=== PATIENT | male | born 1930 | race Caucasian/White ===

== ENCOUNTER 2016-09-12 21:06 | Inpatient (IN) | payer OTHER ==
--- NOTE | 2016-09-12 21:36 | PDOC ---
History of Present Illness - General History Source: Patient Exam Limitations: No Limitations - History of Present Illness Initial Comments: 09/12/16 23:58 The patient is a 86 year old male with significant past medical history of hypertension, hyperlipidemia, diabetes (diet-controlled), chronic back pain, and anxiety who presents to the ED BIBA from home for s/p unwitnessed mechanical fall prior to arrival. Patient reports he was getting up from his bed when his legs gave out and he fell down on the carpet floor. Denies any head trauma or LOC. States after falling down he felt weak and was unable to get up. He was on the floor for 30 minutes and states he contacted his neighbors. Patient admits to eating very little today. He states not having any pain or any other complaints. The patient denies fever, chills, cough, SOB, chest pain, and palpitations. The patient denies abdominal pain, nausea, vomiting, and diarrhea. Allergies: NKDA Social History: No alcohol, tobacco, or drug use reported. Past Surgical History: appendectomy, spinal fusion lumbar PCP: Dr. Antony Marks <Catie Hernandez - Last Filed: 09/13/16 03:15> <Dilcia Lee - Last Filed: 09/13/16 06:37> - General Chief Complaint: Injury Stated Complaint: WEAKNESS/FALL Time Seen by Provider: 09/12/16 21:36 Past History <Catie Hernandez - Last Filed: 09/13/16 03:15> - Past Medical History Anemia: No Asthma: No Cancer: No Cardiac Disorders: No Diabetes: Yes HTN: Yes Hypercholesterolemia: Yes Psychiatric Problems: Yes (ANXIETY.) - Surgical History Abdominal Surgery: Yes Appendectomy: Yes Neurologic Surgery: Yes (spinal fusion lumbar) - Psycho/Social/Smoking Cessation Hx Anxiety: No Suicidal Ideation: No Smoking Status: No Smoking History: Never smoked Number of Cigarettes Smoked Daily: 0 Hx Alcohol Use: No Drug/Substance Use Hx: No Substance Use Type: None Hx Substance Use Treatment: No <Dilcia Lee - Last Filed: 09/13/16 06:37> - Past Medical History Allergies/Adverse Reactions: Allergies Allergy/AdvReac Type Severity Reaction Status Date / Time No Known Allergies Allergy Verified 09/12/16 21:37 Home Medications: Ambulatory Orders Acetaminophen [Tylenol] 0 mg PO PRN PRN 03/13/16 Alprazolam [Xanax] 0.5 mg PO HS #2 tablet MDD 1 03/13/16 Aspirin [ASA -] 81 mg PO DAILY 03/13/16 Lisinopril 0 mg PO DAILY 03/13/16 Paroxetine HCl 0 mg PO DAILY 03/13/16 Tamsulosin HCl [Flomax] 0.4 mg PO DAILY 03/13/16 Review of Systems - Review of Systems Able to Perform ROS?: Yes Comments:: 09/12/16 23:58 CONSTITUTIONAL: +generalized weakness, decreased appetite Absent: fever, chills, diaphoresis, malaise HEENT: Absent: rhinorrhea, nasal congestion, throat pain, throat swelling, difficulty swallowing, mouth swelling, ear pain, eye pain, visual Changes CARDIOVASCULAR: Absent: chest pain, syncope, palpitations, irregular heart rate, lightheadedness , peripheral edema RESPIRATORY: Absent: cough, shortness of breath, dyspnea with exertion, orthopnea, wheezing, stridor, hemoptysis GASTROINTESTINAL: Absent: abdominal pain, abdominal distension, nausea, vomiting, diarrhea, constipation, melena, hematochezia GENITOURINARY: Absent: dysuria, frequency, urgency, hesitancy, hematuria, flank pain, genital pain MUSCULOSKELETAL: Absent: myalgia, arthralgia, joint swelling SKIN: Absent: rash, itching, pallor NEUROLOGIC: Absent: headache, focal weakness or paresthesias, dizziness, unsteady gait, seizure, mental status changes, bladder or bowel incontinence <Catie Hernandez - Last Filed: 09/13/16 03:15> *Physical Exam - Vital Signs Last Vital Signs Temp Pulse Resp BP Pulse Ox 98.7 F 68 19 96/48 98 09/12/16 21:29 09/12/16 21:29 09/12/16 21:29 09/12/16 21:29 09/12/16 21:29 - Physical Exam Comments: 09/13/16 03:14 GENERAL: Well developed, well nourished. Awake and alert. No acute distress. HEENT: Normocephalic, atraumatic. PERRLA, EOMI. No conjunctival pallor. Sclera are non- icteric. Rhinophyma. Moist mucous membranes. Oropharynx is clear. NECK: Supple. Full ROM. No JVD. Carotid pulses 2+ and symmetric, without bruits. No thyromegaly. No lymphadenopathy. CARDIOVASCULAR: Regular rate and rhythm. No murmurs, rubs, or gallops. Distal pulses are 2+ and symmetric. PULMONARY: No evidence of respiratory distress. Lungs clear to auscultation bilaterally. No wheezing, rales or rhonchi. ABDOMINAL: Soft. Non-tender. Non-distended. No rebound or guarding. No organomegaly. Normoactive bowel sounds. MUSCULOSKELETAL Normal range of motion at all joints. No bony deformities or tenderness. No CVA tenderness. EXTREMITIES: No cyanosis. No clubbing. No edema. No calf tenderness. SKIN: Warm and dry. Normal capillary refill. No rashes. No jaundice. NEUROLOGICAL: Alert, awake, appropriate. Cranial nerves 2-12 intact. Moving all extremities. No gross focal neurological deficits. <Catie Hernandez - Last Filed: 09/13/16 03:15> Heart Score/ECG Review - ECG Impressions Comment:: 09/13/16 00:58 NSR @65bpm <Catie Hernandez - Last Filed: 09/13/16 03:15> ED Treatment Course - LABORATORY CBC & Chemistry Diagram: 09/12/16 22:30 09/12/16 22:30 - ADDITIONAL ORDERS Additional order review: Laboratory Results 09/12/16 09/12/16 09/12/16 22:30 22:30 22:30 INR Sodium 136 Potassium 3.7 Chloride 100 Carbon Dioxide 27 Anion Gap 9 BUN 21 H D Creatinine 1.2 D Creat Clearance w eGFR 57.54 Random Glucose 184 H D Calcium 8.0 L Total Bilirubin 0.5 AST 31 D ALT 24 Alkaline Phosphatase 121 H Creatine Kinase 791 H D Creatine Kinase Index 1.0 CK-MB (CK-2) 9.111 H CK-MB (CK-2) Rel Index Cancelled Total Protein 6.1 L Albumin 3.4 09/12/16 22:30 INR 1.31 H Sodium Potassium Chloride Carbon Dioxide Anion Gap BUN Creatinine Creat Clearance w eGFR Random Glucose Calcium Total Bilirubin AST ALT Alkaline Phosphatase Creatine Kinase Creatine Kinase Index CK-MB (CK-2) CK-MB (CK-2) Rel Index Total Protein Albumin 09/12/16 22:30 RBC 4.31 MCV 90.3 MCHC 32.9 RDW 13.5 MPV 7.7 Neutrophils % 88.0 H D Lymphocytes % 5.1 L D Monocytes % 6.4 Eosinophils % 0.2 D Basophils % 0.3 - Medications Given in the ED: ED Medications Discontinued Medications Generic Name Dose Route Start Last Admin Trade Name Reg PRN Reason Stop Dose Admin Sodium Chloride 1,000 ml 09/12/16 22:03 09/12/16 22:39 Normal Saline - IV 09/12/16 22:04 1,000 ml ONCE ONE Administration <Catie Hernandez - Last Filed: 09/13/16 03:15> - LABORATORY CBC & Chemistry Diagram: 09/12/16 22:30 09/12/16 22:30 <Dilcia Lee - Last Filed: 09/13/16 06:37> Medical Decision Making - Medical Decision Making 09/12/16 23:[address] Antony Marks (via answering service) at 23:58 Awaiting call back 09/13/16 00:25 Patient's case discussed with Dr. Marks at 24:25 <Catie Hernandez - Last Filed: 09/13/16 03:15> - Medical Decision Making 09/13/16 06:32 Pt came with fall at home. He was weak in the legs and he slid onto the floor as he tried to get out of bed. He called his neighbors, and they came and brought him to the ER vit [facility]. Pt has an elevated CPK, and he will be admitted to the med surg floor for generalized weakness. 09/13/16 06:35 Pt's UA returned and he has a UTI; many bacteria, 2+leukocytes. I will order levaquin IVPB; he never received it in the ER, because the UA returned after he went to the floor. 09/13/16 06:37 Pt was admitted to Dr Marks. <Dilcia Lee - Last Filed: 09/13/16 06:37> *DC/Admit/Observation/Transfer - Attestations Scribe Attestion: 09/13/16 03:15 Documentation prepared by Catie Hernandez, acting as medical assistant per diem for Dilcia Lee MD/DO. <Catie Hernandez - Last Filed: 09/13/16 03:15> - Discharge Dispostion Admit: Yes <Dilcia Lee - Last Filed: 09/13/16 06:37> Diagnosis at time of Disposition: Fall, Rhabdomyolysis, Weakness, Dehydration - Discharge Dispostion Condition at time of disposition: Guarded - Referrals
[2016-09-12 21:54] VITALS: BMI 23.0
[2016-09-12] MEDS ORDERED: SODIUM CHLORIDE 0.9% 500 ML INFUS.BAG IV ONE (22:03)
[2016-09-12 22:41] LABS: BASOPHIL 0.3 % (0-2.0); EOSINOPHIL 0.2 % (0-4.5); MCH 29.7 pg (25.7-33.7); MCHC 32.9 g/dl (32.0-35.9); MEAN CELL VOLUME 90.3 fl (80-96); MEAN PLT VOLUME 7.7 fl (7.5-11.1); PLATELET COUNT 231 K/MM3 (134-434); RDW 13.5 % (11.9-15.9); WHITE BLOOD COUNT 13.2 K/mm3 (4.0-10.0)
[2016-09-12 22:58] LABS: INR 1.31 (0.82-1.09); PROTHROMBIN TIME (PATIENT) 14.5 SEC (9.98-11.88)
[2016-09-12 23:14] LABS: ALBUMIN 3.4 g/dl (3.4-5.0); BILIRUBIN,TOTAL 0.5 mg/dL (0.2-1.0); COCKROFT - GAULT 47.64; CREATININE 1.2 mg/dL (0.7-1.3); TOT PROT 6.1 g/dl (6.4-8.2)
[2016-09-13 01:10] LABS: URINE APPEARANCE SLCLOUDY; URINE BILIRUBIN NEGATIVE (NEGATIVE); URINE COLOR AMBER; URINE GLUCOSE (UA) NEGATIVE (NEGATIVE); URINE KETONE NEGATIVE (NEGATIVE); URINE NITRITE NEGATIVE (NEGATIVE); URINE UROBILINOGEN NEGATIVE E.U./dl (0.2-1.0)
[2016-09-13 01:23] LABS: URINE BLOOD 2+ (NEGATIVE); URINE LEUK ESTERASE 2+ (NEGATIVE); URINE PROTEIN 1+ (NEGATIVE)
[2016-09-13 01:25] LABS: URINE BACTERIA MANY /hpf (NONE SEEN); URINE HYALINE CAST 35 /lpf; URINE MUCUS MANY; URINE RBC 3 /hpf (0-3); URINE WBC 142 /hpf (3-5)
[2016-09-13] MEDS ORDERED: ACETAMINOPHEN 325 MG TABLET (FP) PO PRN (06:28)
[2016-09-13] MEDS ORDERED: LEVOFLOXACIN 500 MG IVPB 100 ML IVPB ONE (06:36)
[2016-09-13] MEDS: SODIUM CHLORIDE 0.45% 1,000 ML IV SCH ×2 (06:52→17:19)
[2016-09-13 07:44] LABS: BASOPHIL 0.2 % (0-2.0); EOSINOPHIL 0.1 % (0-4.5); MCH 30.6 pg (25.7-33.7); MCHC 33.8 g/dl (32.0-35.9); MEAN CELL VOLUME 90.5 fl (80-96); MEAN PLT VOLUME 7.8 fl (7.5-11.1); NEUTROPHILS 81.8 % (42.8-82.8); PLATELET COUNT 218 K/MM3 (134-434); RDW 13.5 % (11.9-15.9); WHITE BLOOD COUNT 10.2 K/mm3 (4.0-10.0)
[2016-09-13 08:04] LABS: ANION GAP 7 (8-16); CALCIUM 7.9 mg/dL (8.5-10.1); CO2 31 mmol/L (21-32); GLUCOSE,RANDOM 113 mg/dL (74-106); SGOT/AST 63 U/L (15-37); SGPT/ALT 30 U/L (12-78)
[2016-09-13 08:06] LABS: ALK PHOS 105 U/L (45-117); BILIRUBIN,TOTAL 0.7 mg/dL (0.2-1.0); COCKROFT - GAULT 63.52; CREATININE 0.9 mg/dL (0.7-1.3); TOT PROT 5.5 g/dl (6.4-8.2)
[2016-09-13] MEDS: TAMSULOSIN HCL 0.4 MG CAP.ER.24H (FP) PO SCH (08:38)
--- NOTE | 2016-09-13 08:57 | EKG ---
Test Reason : Blood Pressure : / mmHG Vent. Rate : 064 BPM Atrial Rate : 064 BPM P-R Int : 156 ms QRS Dur : 064 ms QT Int : 404 ms P-R-T Axes : 041 038 031 degrees QTc Int : 416 ms SINUS RHYTHM WITH PREMATURE ATRIAL COMPLEXES OTHERWISE NORMAL ECG WHEN COMPARED WITH ECG OF 12-SEP-2016 22:42, PREMATURE ATRIAL COMPLEXES ARE NOW PRESENT Confirmed by IRENE DANIELS, STORMY ([id number]) on 09/13/2016 8:57:24 AM Referred By: FREDO BENAVIDES Confirmed By:STORMY BONILLA MD
[2016-09-13] MEDS: LISINOPRIL 5 MG TABLET (FP) PO SCH ×2 (10:32→11:18)
[2016-09-13] MEDS: HEPARIN NA (PORCINE) 5,000 UNITS/ML 1ML VIAL SQ SCH ×2 (10:32→22:30)
[2016-09-13] MEDS: PARoxetine HCL 10 MG TABLET (FP) PO SCH (10:32)
[2016-09-13] MEDS: ASPIRIN 81 MG CHEWABLE TABLETS PO SCH (10:32)
--- NOTE | 2016-09-13 11:15 | HP ---
Admitting History and Physical - Primary Care Physician PCP: Antony Marks - Admission Chief Complaint: fall,legs gave way could not get up History of Present Illness: The patient is a 86 year old male with significant past medical history of hypertension, hyperlipidemia, diabetes (diet-controlled), chronic back pain, and anxiety who presents to the ED BIBA from home for s/p unwitnessed mechanical fall prior to arrival. Patient reports he was getting up from his bed when his legs gave out and he fell down on the carpet floor. Denies any head trauma or LOC. States after falling down he felt weak and was unable to get up. He was on the floor for 30 minutes and states he contacted his neighbors. Patient admits to eating very little today. He states not having any pain or any other complaints. The patient denies fever, chills, cough, SOB, chest pain, and palpitations. The patient denies abdominal pain, nausea, vomiting, and diarrhea. Allergies: NKDA Social History: No alcohol, tobacco, or drug use reported. Past Surgical History: appendectomy, spinal fusion lumbar PCP: Dr. Antony Marks per patient he slid off the bed and tried to get up his legs gave way and had no strenght and could not get up and was on the floor for 30 minutes found to have uti and elevated Wbc elevated cpk on ivf History Source: Patient - Past Medical History Cardiovascular: Yes: HTN, Hyperlipdemia Musculoskeletal: Yes: Chronic low back pain Endocrine: Yes: Diabetes Mellitus - Smoking History Smoking history: Never smoked Have you smoked in the past 12 months: No Aproximately how many cigarettes per day: 0 If you are a former smoker, when did you quit?: 50 years ago - Alcohol/Substance Use Hx Alcohol Use: No Home Medications - Allergies Allergies/Adverse Reactions: Allergies Allergy/AdvReac Type Severity Reaction Status Date / Time No Known Allergies Allergy Verified 09/12/16 21:37 - Home Medications Home Medications: Ambulatory Orders Acetaminophen [Tylenol] 0 mg PO PRN PRN 03/13/16 Alprazolam [Xanax] 0.5 mg PO HS #2 tablet MDD 1 03/13/16 Aspirin [ASA -] 81 mg PO DAILY 03/13/16 Lisinopril 0 mg PO DAILY 03/13/16 Paroxetine HCl 0 mg PO DAILY 03/13/16 Tamsulosin HCl [Flomax] 0.4 mg PO DAILY 03/13/16 Review of Systems - Review of Systems Constitutional: reports: No Symptoms Eyes: reports: No Symptoms HENT: reports: No Symptoms Neck: reports: No Symptoms Cardiovascular: reports: No Symptoms Respiratory: reports: No Symptoms Physical Examination Vital Signs: Vital Signs Temperature 98 F 09/13/16 07:44 Pulse Rate 69 09/13/16 07:44 Respiratory Rate 18 09/13/16 07:44 Blood Pressure 110/45 09/13/16 07:44 O2 Sat by Pulse Oximetry (%) 98 09/13/16 07:44 Constitutional: Yes: Calm Neck: Yes: Trachea Midline Cardiovascular: Yes: Regular Rate and Rhythm, S1, S2 Respiratory: Yes: CTA Bilaterally Gastrointestinal: Yes: Normal Bowel Sounds, Soft Edema: No Neurological: Yes: Alert, Oriented, Other (able to flex and extend his legs) Labs: CBC, BMP 09/13/16 06:45 09/13/16 06:45 Problem List - Problems (1) Dehydration Assessment/Plan: ivf hydration monitor labs Code(s): E86.0 - DEHYDRATION (2) Fall Assessment/Plan: PMR consult rehab Code(s): W19.XXXA - UNSPECIFIED FALL, INITIAL ENCOUNTER (3) Rhabdomyolysis Assessment/Plan: iv hydratins elevated CPK Code(s): M62.82 - RHABDOMYOLYSIS (4) Weakness Assessment/Plan: PT Code(s): R53.1 - WEAKNESS (5) UTI (urinary tract infection) Assessment/Plan: got levaquin dose today ID eval culures pending Code(s): N39.0 - URINARY TRACT INFECTION, SITE NOT SPECIFIED (6) Hypertension Assessment/Plan: hold for SBP <110 Code(s): I10 - ESSENTIAL (PRIMARY) HYPERTENSION (7) BPH (benign prostatic hyperplasia) Assessment/Plan: flomax Code(s): N40.0 - BENIGN PROSTATIC HYPERPLASIA WITHOUT LOWER URINRY TRACT SYMP
--- NOTE | 2016-09-13 13:32 | EKG ---
Test Reason : Blood Pressure : / mmHG Vent. Rate : 065 BPM Atrial Rate : 065 BPM P-R Int : 162 ms QRS Dur : 068 ms QT Int : 390 ms P-R-T Axes : 038 023 042 degrees QTc Int : 405 ms NORMAL SINUS RHYTHM WITH SINUS ARRHYTHMIA NORMAL ECG WHEN COMPARED WITH ECG OF 13-MAR-2016 12:24, NO SIGNIFICANT CHANGE WAS FOUND Confirmed by KENDELL DUMONT MD ([id number]) on 09/13/2016 1:32:03 PM Referred By: Confirmed By:KENDELL DUMONT MD
--- NOTE | 2016-09-13 14:34 | PN ---
Progress Note (short form) - Note Progress Note: ID consult dictated imp/reccd 86 year old man admitted after fall and weakness at home no syncope no chest pain was getting up to use the bathroom as he does every night fever to 101 several days ago no dysuria, no change in frequency no cough no diarrhea followed by urology dr zaman for BPD, on flomas, ?urethral stricture weakness s/p fall Doubt UTI ua is contaminated repeat ua and urine culture blood cultures rocephin rhabdomyolysis secondary to fall Problem List - Problems (1) Weakness Code(s): R53.1 - WEAKNESS (2) Fall Code(s): W19.XXXA - UNSPECIFIED FALL, INITIAL ENCOUNTER (3) UTI (urinary tract infection) Code(s): N39.0 - URINARY TRACT INFECTION, SITE NOT SPECIFIED (4) Rhabdomyolysis Code(s): M62.82 - RHABDOMYOLYSIS
--- NOTE | 2016-09-13 15:04 | CON.CARD ---
Consult Consult Specialty:: Cardiology Referred by:: Dr. Marks Reason for Consultation:: Abnormal CPK enzymes - History of Present Illness Chief Complaint: S/P fall History of Present Illness: This is an 86 year old male with a PMH of HTN, HLD, and DM (controlled by diet) . Also a history of previous mechanical falls. Occasionally he gets lightheaded when getting up from the bed or a chair. He presents now with a fall after getting out of bed where he states that: "my legs gave out", and he fell to a carpeted floor. He was on the floor for about 1/2 hour because he states that he felt weak. He was noted to have positive CPK MB's. He denies chest pain, palpitations, and SOB. EKG's are without acute changes. - History Source History Provided By: Patient Limitations to Obtaining History: No Limitations - Past Medical History Cardio/Vascular: Yes: HTN, Hyperlipdemia Musculoskeletal: Yes: Chronic low back pain Endocrine: Yes: Diabetes Mellitus - Past Surgical History Additional Surgical History: Hip replacement (as per the patient) - Alcohol/Substance Use Hx Alcohol Use: No - Smoking History Smoking history: Never smoked Have you smoked in the past 12 months: No Aproximately how many cigarettes per day: 0 If you are a former smoker, when did you quit?: 50 years ago Home Medications - Allergies Allergies/Adverse Reactions: Allergies Allergy/AdvReac Type Severity Reaction Status Date / Time No Known Allergies Allergy Verified 09/12/16 21:37 - Home Medications Home Medications: Ambulatory Orders Acetaminophen [Tylenol] 0 mg PO PRN PRN 03/13/16 Alprazolam [Xanax] 0.5 mg PO HS #2 tablet MDD 1 03/13/16 Aspirin [ASA -] 81 mg PO DAILY 03/13/16 Lisinopril 0 mg PO DAILY 03/13/16 Paroxetine HCl 0 mg PO DAILY 03/13/16 Tamsulosin HCl [Flomax] 0.4 mg PO DAILY 03/13/16 Review of Systems Unable to obtain ROS, reason: As per HPI Vital Signs: Vital Signs Temperature 98.6 F 09/13/16 14:11 Pulse Rate 65 09/13/16 14:11 Respiratory Rate 20 09/13/16 14:11 Blood Pressure 108/56 09/13/16 14:11 O2 Sat by Pulse Oximetry (%) 97 09/13/16 09:00 Constitutional: Yes: No Distress. No: Other Respiratory: Yes: CTA Bilaterally Gastrointestinal: Yes: Soft Cardiovascular: Yes: Regular Rate and Rhythm JVD: No Carotid Bruit: No PMI: Non-Displaced Heart Sounds: Yes: S1, S2 Edema: No Peripheral Pulses WNL: Yes Neurological: Yes: Alert, Oriented, Other (Non focal) Psychiatric: Yes: WNL - Other Data Labs, Other Data: CBC, BMP 09/13/16 06:45 09/13/16 06:45 INR, PTT INR 1.31 (0.82-1.09) H 09/12/16 22:30 Troponin, BNP 09/13/16 09/13/16 06:45 06:45 Troponin I 0.10 H D Cancelled Troponin, BNP 09/13/16 09/13/16 06:45 06:45 Troponin I 0.10 H D Cancelled No acute EKG changes Assessment/Plan Assessment and Plan: S/P Fall: Possibly mechanical, may be orthostatic Agree with transferring to telemetry given lab abnormalities Echocardiogram ordered Check orthostatic BP's CPK 2262 CK-MB 17.5, Troponin 0.10 - This most likely represent skeletal muscle form being on the ground, however, a cardiac component is possible. Follow enzyme trends. Would hold Lisinopril for now given low BP If he is orthostatic, this may be secondary to Flomax. Will follow with you.
[2016-09-13] MEDS ORDERED: PNEUMOC 13-VAL CONJ-DIP CRM/PF 0.5 ML DISP.SYRIN IM ONE (15:15)
[2016-09-13 15:48] LABS: TROPONIN I 0.07 ng/ml (0.00-0.05)
--- NOTE | 2016-09-13 16:57 | CONS ---
DATE OF CONSULTATION: DATE OF DICTATION: 09/13/2016 INFECTIOUS DISEASE CONSULTATION HISTORY OF PRESENT ILLNESS: An 86-year-old man, he lives at home. He is a , lives by himself. 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 He is followed by Dr. Dexter. He has been on Flomax for a very long time. He gets up nightly several times to urinate. This is unchanged. Last night he got up to urinate. He says he got up very quickly, and then he fell down. He felt very weak and was unable to get back in bed. He was able to pull the phone off the dresser, and he contacted his neighbors. He has been eating poorly. He states 2 or 3 days ago he felt very hot. He took his temperature and had a fever of 101. He has no other complaints. There is no cough, shortness of breath, chest pain, or palpitations. He has no abdominal pain. He has no nausea, vomiting. He has no diarrhea. He has no dysuria. He had no loss of consciousness. He did not hit his head. PAST MEDICAL HISTORY: Notable for hypertension, hyperlipidemia, chronic low back pain and diabetes. He has a history of BPH and I suspect he has had strictures dilated. SURGICAL HISTORY: Notable for appendectomy and spinal fusion. FAMILY HISTORY: Noncontributory. SOCIAL HISTORY: Used to work for [employer]. He has been retired for many years. He is . He lives alone. There is no history of cigarette or substance use. ALLERGIES: He has no known drug allergies. MEDICATION: His medications at home include Tylenol, Xanax, aspirin, lisinopril, Paxil, and Flomax. He reports no new medications, although he recently did take an antibiotic he says for a sore throat. He takes amoxicillin. REVIEW OF SYSTEMS: As per HPI. He is currently resting comfortably and has no complaints. PHYSICAL EXAMINATION: Vital signs: Temperature is 98.6, T-max was 99, blood pressure is 108/56, pulse of 65, respiratory rate 20, saturating 97% on room air. HEENT: Normocephalic. Eyes are anicteric. Neck: Supple. Lungs: Clear to auscultation. Heart: Regular rate and rhythm. Abdomen: Soft, nontender. Extremities: Without edema. He has no palpable bladder. He has no CVA tenderness. LABORATORY: White count on admission was 13.2. Last night, this morning was 10.2. Hemoglobin 12.3, platelets are normal. BUN and creatinine are 18 and 0.9. Glucose 113 with a CPK . Urinalysis has 2+ leukocytes with 142 white cells and moderate epithelial cells. A urine culture has been sent. He had a chest x-ray done in the emergency room that was unremarkable. IMPRESSION: In summary, this is an elderly man with weakness status post fall. I doubt a urinary tract infection. The urinalysis is contaminated. Would repeat a urinalysis, urine culture. Would obtain blood cultures given the recent fever, and treat him with ceftriaxone for now. Secondarily, he has rhabdomyolysis . KAREN FERGUSON M.D. [facility]/[id number]
[2016-09-13] MEDS: ALPRAZolam 0.25 MG TABLET PO SCH (22:30)
[2016-09-14 07:08] LABS: BASOPHIL 0.3 % (0-2.0); EOSINOPHIL 2.9 % (0-4.5); MCH 30.8 pg (25.7-33.7); MCHC 33.8 g/dl (32.0-35.9); MEAN CELL VOLUME 91.1 fl (80-96); MEAN PLT VOLUME 7.7 fl (7.5-11.1); NEUTROPHILS 62.6 % (42.8-82.8); PLATELET COUNT 216 K/MM3 (134-434); RDW 13.5 % (11.9-15.9); WHITE BLOOD COUNT 5.5 K/mm3 (4.0-10.0)
[2016-09-14 07:42] LABS: ALBUMIN 2.9 g/dl (3.4-5.0); ALK PHOS 100 U/L (45-117); ANION GAP 11 (8-16); BILIRUBIN,TOTAL 0.2 mg/dL (0.2-1.0); CO2 28 mmol/L (21-32); COCKROFT - GAULT 82.07; CREATININE 0.7 mg/dL (0.7-1.3); GLUCOSE,RANDOM 97 mg/dL (74-106); SGOT/AST 86 U/L (15-37); SGPT/ALT 40 U/L (12-78); TOT PROT 5.4 g/dl (6.4-8.2)
--- NOTE | 2016-09-14 07:49 | PN ---
Progress Note, Physician History of Present Illness: NO CP NO SOB WEAKNESS - Current Medication List Current Medications: Active Medications Acetaminophen (Tylenol -) 650 mg PO Q6H PRN PRN Reason: FEVER OR PAIN Alprazolam (Xanax -) 0.5 mg PO HS [facility] Last Admin: 09/13/16 22:30 Dose: 0.25 mg Aspirin (Asa -) 81 mg PO DAILY [facility] Last Admin: 09/13/16 10:32 Dose: 81 mg Ceftriaxone Sodium (Rocephin 1gm Ivpb (Pre-Docked)) 1 gm IVPB DAILY [facility] PRN Reason: Protocol Heparin Sodium (Porcine) (Heparin -) 5,000 unit SQ BID [facility] Last Admin: 09/13/16 22:30 Dose: 5,000 unit Sodium Chloride (1/2 Normal Saline) 1,000 mls @ 125 mls/hr IV ASDIR [facility] Last Admin: 09/13/16 17:19 Dose: 125 mls/hr Lisinopril (Prinivil) 5 mg PO DAILY [facility] Paroxetine HCl (Paxil -) 10 mg PO DAILY [facility] Last Admin: 09/13/16 10:32 Dose: 10 mg Tamsulosin HCl (Flomax -) 0.4 mg PO DAILY@0830 [facility] Last Admin: 09/13/16 08:38 Dose: 0.4 mg - Objective Vital Signs: Vital Signs Temperature 98.4 F 09/14/16 06:00 Pulse Rate 57 L 09/14/16 06:00 Respiratory Rate 18 09/14/16 06:00 Blood Pressure 128/54 09/14/16 06:00 O2 Sat by Pulse Oximetry (%) 98 09/13/16 22:00 Cardiovascular: Yes: Regular Rate and Rhythm Respiratory: Yes: Regular, CTA Bilaterally Gastrointestinal: Yes: Normal Bowel Sounds, Soft Labs: CBC, BMP 09/14/16 06:10 09/14/16 06:10 INR, PTT INR 1.31 (0.82-1.09) H 09/12/16 22:30 Problem List - Problems (1) Dehydration Assessment/Plan: BETTER NOW ON IVF Code(s): E86.0 - DEHYDRATION (2) Hypertension Assessment/Plan: MONITOR OFF SHANNON Code(s): I10 - ESSENTIAL (PRIMARY) HYPERTENSION (3) Rhabdomyolysis Assessment/Plan: IVF CK TRENDING DOWN Code(s): M62.82 - RHABDOMYOLYSIS (4) UTI (urinary tract infection) Assessment/Plan: ABX PER ID Code(s): N39.0 - URINARY TRACT INFECTION, SITE NOT SPECIFIED (5) Weakness Assessment/Plan: PT AWAIT LABS AND CULTURES Code(s): R53.1 - WEAKNESS (6) Troponin I above reference range Assessment/Plan: MONITOR TRENDS ECHO STRESS TEST Code(s): R74.8 - ABNORMAL LEVELS OF OTHER SERUM ENZYMES
[2016-09-14 07:58] LABS: TROPONIN I 0.02 ng/ml (0.00-0.05)
[2016-09-14] MEDS ORDERED: PNEUMOC 13-VAL CONJ-DIP CRM/PF 0.5 ML DISP.SYRIN IM ONE (10:00)
[2016-09-14] MEDS ORDERED: DEXTROSE 5% IVPB ONE (10:00)
[2016-09-14] MEDS ORDERED: WATER IVPB ONE (10:00)
[2016-09-14] MEDS ORDERED: DIPYRIDAMOLE STRESS TEST IVPB ONE (10:00)
[2016-09-14] MEDS: cefTRIAXone 1 GM/50 ML BAG (PRE-DOCKED) IVPB SCH (13:34)
[2016-09-14] MEDS: SODIUM CHLORIDE 0.45% 1,000 ML IV SCH (13:37)
[2016-09-14] MEDS: ASPIRIN 81 MG CHEWABLE TABLETS PO SCH (13:38)
[2016-09-14] MEDS: HEPARIN NA (PORCINE) 5,000 UNITS/ML 1ML VIAL SQ SCH ×2 (13:38→22:14)
[2016-09-14] MEDS: TAMSULOSIN HCL 0.4 MG CAP.ER.24H (FP) PO SCH (13:38)
[2016-09-14] MEDS: LISINOPRIL 5 MG TABLET (FP) PO SCH (13:39)
[2016-09-14] MEDS: PARoxetine HCL 10 MG TABLET (FP) PO SCH (13:39)
--- NOTE | 2016-09-14 15:20 | PN ---
Progress Note, Physician Chief Complaint: Remains comfortable and chest pain free History of Present Illness: This is an 86 year old male with a PMH of HTN, HLD, and DM (controlled by diet) . Also a history of previous mechanical falls. Occasionally he gets lightheaded when getting up from the bed or a chair. He presents now with a fall after getting out of bed where he states that: "my legs gave out", and he fell to a carpeted floor. He was on the floor for about 1/2 hour because he states that he felt weak. He was noted to have positive CPK MB's. He denies chest pain, palpitations, and SOB. EKG's are without acute changes. Echocardiogram 09/14/16 EF 58.4% Normal LV size and function Mild to moderate MR Mild TR RVSP 30 - 40 mmHg consistent with mild pulmonary HTN Persantine Nuclear Stress Test 09/14/16: Small zone of inferior fixed defect from the base to the mid cavity compatible with diaphragmatic attenuation. Normal LV function with an EF of 65%. 09/14/16 Remains comfortable and hemodynamically stable - Current Medication List Current Medications: Active Medications Acetaminophen (Tylenol -) 650 mg PO Q6H PRN PRN Reason: FEVER OR PAIN Alprazolam (Xanax -) 0.5 mg PO HS [facility] [place] Last Admin: 09/13/16 22:30 Dose: 0.25 mg Aspirin (Asa -) 81 mg PO DAILY [facility] [place] Last Admin: 09/14/16 13:38 Dose: 81 mg Ceftriaxone Sodium (Rocephin 1gm Ivpb (Pre-Docked)) 1 gm IVPB DAILY [facility] [place] PRN Reason: Protocol Last Admin: 09/14/16 13:34 Dose: 1 gm Heparin Sodium (Porcine) (Heparin -) 5,000 unit SQ BID [facility] [place] Last Admin: 09/14/16 13:38 Dose: 5,000 unit Sodium Chloride (1/2 Normal Saline) 1,000 mls @ 125 mls/hr IV ASDIR [facility] [place] Last Admin: 09/14/16 13:37 Dose: 125 mls/hr Lisinopril (Prinivil) 5 mg PO DAILY [facility] [place] Last Admin: 09/14/16 13:39 Dose: 5 mg Paroxetine HCl (Paxil -) 10 mg PO DAILY [facility] [place] Last Admin: 09/14/16 13:39 Dose: 10 mg Tamsulosin HCl (Flomax -) 0.4 mg PO DAILY@0830 [facility] [place] Last Admin: 09/14/16 13:38 Dose: 0.4 mg - Objective Vital Signs: Vital Signs Temperature 98.6 F 09/14/16 14:50 Pulse Rate 60 09/14/16 14:50 Respiratory Rate 18 09/14/16 14:50 Blood Pressure 118/58 09/14/16 14:50 O2 Sat by Pulse Oximetry (%) 98 09/13/16 22:00 Constitutional: Yes: Well Nourished, Calm Cardiovascular: Yes: Regular Rate and Rhythm, S1, S2 (No MRHG) Respiratory: Yes: CTA Bilaterally Gastrointestinal: Yes: Soft Extremities: Yes: WNL Edema: No Neurological: Yes: Alert (Non focal), Oriented Labs: CBC, BMP 09/14/16 06:10 09/14/16 06:10 INR, PTT INR 1.31 (0.82-1.09) H 09/12/16 22:30 Assessment/Plan Assessment and Plan: S/P Fall positive CPK Possibly mechanical, may be orthostatic Echocardiogram with normal LV function Nuclear stress test with essentially normal perfusion (soft tissue attenuation) Enzymes are trending down Tolerating current medical therapy
[2016-09-14] MEDS: ALPRAZolam 0.25 MG TABLET PO SCH (22:15)
[2016-09-15] MEDS ORDERED: PT OWN MED DRAWER 7, Y5N ONE (09:05)
--- NOTE | 2016-09-15 09:16 | DS ---
Physical Examination Vital Signs: Vital Signs Temperature 98.3 F 09/15/16 06:00 Pulse Rate 61 09/15/16 06:00 Respiratory Rate 18 09/15/16 06:00 Blood Pressure 113/60 09/15/16 06:00 O2 Sat by Pulse Oximetry (%) 95 09/14/16 21:00 Findings/Remarks: NO COMPLAINTS Cardiovascular: Yes: Regular Rate and Rhythm Respiratory: Yes: Regular, CTA Bilaterally Gastrointestinal: Yes: Normal Bowel Sounds, Soft Labs: CBC, BMP 09/14/16 06:10 09/14/16 06:10 Discharge Summary Reason For Visit: RHABDOMYOYSIS FALL WEAKNESS Current Active Problems BPH (benign prostatic hyperplasia) (Acute) Dehydration (Acute) Fall (Acute) Hypertension (Acute) Rhabdomyolysis (Acute) Troponin I above reference range (Acute) UTI (urinary tract infection) (Acute) Weakness (Acute) Hospital Course: The patient is a 86 year old male with significant past medical history of hypertension, hyperlipidemia, diabetes (diet-controlled), chronic back pain, and anxiety who presents to the ED BIBA from home for s/p unwitnessed mechanical fall prior to arrival. Patient reports he was getting up from his bed when his legs gave out and he fell down on the carpet floor. Denies any head trauma or LOC. States after falling down he felt weak and was unable to get up. He was on the floor for 30 minutes and states he contacted his neighbors. Patient admits to eating very little today. He states not having any pain or any other complaints. The patient denies fever, chills, cough, SOB, chest pain, and palpitations. The patient denies abdominal pain, nausea, vomiting, and diarrhea. Allergies: NKDA Social History: No alcohol, tobacco, or drug use reported. Past Surgical History: appendectomy, spinal fusion lumbar PCP: Dr. Antony Marks per patient he slid off the bed and tried to get up his legs gave way and had no strenght and could not get up and was on the floor for 30 minutes found to have uti and elevated Wbc elevated cpk on ivf History Source: Patient - Past Medical History Cardiovascular: Yes: HTN, Hyperlipdemia Musculoskeletal: Yes: Chronic low back pain Endocrine: Yes: Diabetes Mellitus Problems (1) Dehydration Assessment/Plan: BETTER NOW OFF IVF Code(s): E86.0 - DEHYDRATION (2) Hypertension Assessment/Plan: MONITOR OFF SHANNON Code(s): I10 - ESSENTIAL (PRIMARY) HYPERTENSION (3) Rhabdomyolysis Assessment/Plan: OFF IVF CK TRENDING DOWN Code(s): M62.82 - RHABDOMYOLYSIS (4) UTI (urinary tract infection) Assessment/Plan: ABX PER ID---D/W DR GAMINO--PO KEFLEX Code(s): N39.0 - URINARY TRACT INFECTION, SITE NOT SPECIFIED (5) Weakness Assessment/Plan: PT NOTED LABS AND CULTURES Code(s): R53.1 - WEAKNESS (6) Troponin I above reference range Assessment/Plan: MONITOR TRENDS ECHO NL LV STRESS TEST NEGATIVE Code(s): R74.8 - ABNORMAL LEVELS OF OTHER SERUM ENZYMES Condition: Improved - Instructions Referrals: Antony Marks MD [Primary Care Provider] - 1 Week Disposition: VNS/HOME HEALTH CARE - Home Medications Comprehensive Discharge Medication List: Ambulatory Orders Alprazolam [Xanax] 0.5 mg PO HS #2 tablet MDD 1 03/13/16 Aspirin [ASA -] 81 mg PO DAILY 03/13/16 Lisinopril 0 mg PO DAILY 03/13/16 Paroxetine HCl 0 mg PO DAILY 03/13/16 Tamsulosin HCl [Flomax] 0.4 mg PO DAILY 03/13/16 Acetaminophen [Tylenol .Regular Strength -] 650 mg PO Q6H PRN #0 tablet
[2016-09-15] MEDS: TAMSULOSIN HCL 0.4 MG CAP.ER.24H (FP) PO SCH (09:19)
[2016-09-15] MEDS: ASPIRIN 81 MG CHEWABLE TABLETS PO SCH (09:19)
[2016-09-15] MEDS: HEPARIN NA (PORCINE) 5,000 UNITS/ML 1ML VIAL SQ SCH (09:20)
[2016-09-15] MEDS: LISINOPRIL 5 MG TABLET (FP) PO SCH (09:20)
[2016-09-15] MEDS: PARoxetine HCL 10 MG TABLET (FP) PO SCH (09:20)
[2016-09-15] MEDS: cefTRIAXone 1 GM/50 ML BAG (PRE-DOCKED) IVPB SCH (09:21)
[2016-09-15 11:08] LABS: TROPONIN I < 0.02 ng/ml (0.00-0.05)
[2016-09-15 13:14] VITALS: BP 110/60; PULSE 75; TEMP 98.4
== END 2016-09-15 14:42 | disposition home health service (06) | DRG 558 ==
LOC: JER 21:06 → JERBED 09-13 00:27 → J5S 09-13 05:22 → J4S 09-13 18:28
PROVIDERS: ADMIT Family Medicine; ATTEND Family Medicine
DX: M62.82 Rhabdomyolysis (principal); N39.0 Urinary tract infection, site not specified; E86.0 Dehydration; R53.1 Weakness; I10 Essential (primary) hypertension; N40.0 Benign prostatic hyperplasia without lower urinary tract symptoms; E78.5 Hyperlipidemia, unspecified; E11.9 Type 2 diabetes mellitus without complications
CPT/HCPCS: 36415; 70450-TC; 71010-TC; 78452-TC; 80053; 81003; 81015; 82550; 82553; 84484; 85025; 85610; 87040; 87086; 90670; 93005; 93010; 93017; 93306-TC; 97116-GP; 97161-GP; 99284-25; A9502; J1245; J1644

== ENCOUNTER 2016-12-19 12:16 | Emergency (ER) | payer OTHER ==
[2016-12-19 12:28] VITALS: BMI 22.9
[2016-12-19] MEDS ORDERED: guaiFENesin/D-METHORPHAN HB 10 ML UNIT-DOSE CUPS PO ONE (13:14)
[2016-12-19] MEDS ORDERED: SODIUM CHLORIDE 500 ML IV STA ×2 (13:15→14:18)
--- NOTE | 2016-12-19 13:18 | PDOC ---
History of Present Illness - General Chief Complaint: Respiratory Stated Complaint: GREEN SPUTUM Time Seen by Provider: 12/19/16 12:30 History Source: Patient - History of Present Illness Timing/Duration: reports: other Associated Symptoms: reports: cough, shortness of breath. denies: chest pain/ soreness, fever/chills, muscle aches, nasal congestion, nasal drainage, sore throat Past History - Past Medical History Allergies/Adverse Reactions: Allergies Allergy/AdvReac Type Severity Reaction Status Date / Time No Known Allergies Allergy Verified 12/19/16 12:25 Home Medications: Ambulatory Orders Alprazolam [Xanax] 0.5 mg PO HS #2 tablet MDD 1 03/13/16 Aspirin [ASA -] 81 mg PO DAILY 03/13/16 Paroxetine HCl 0 mg PO DAILY 03/13/16 Azithromycin 250 mg PO DAILY #4 tablet 12/19/16 Guaifenesin Dm [Robitussin Dm] 10 ml GT Q6H #120 ml MDD 4 doses 12/19/16 Lisinopril [Zestril] 5 mg PO DAILY 12/19/16 Anemia: No Asthma: No Cancer: No Cardiac Disorders: No Diabetes: Yes HTN: Yes Hypercholesterolemia: Yes Psychiatric Problems: Yes (ANXIETY.) - Surgical History Abdominal Surgery: Yes Appendectomy: Yes Neurologic Surgery: Yes (spinal fusion lumbar) - Immunization History Immunization Up to Date: No - Psycho/Social/Smoking Cessation Hx Anxiety: No Suicidal Ideation: No Smoking Status: No Smoking History: Never smoked Have you smoked in the past 12 months: No Number of Cigarettes Smoked Daily: 0 If you are a former smoker, when did you quit?: 50 years ago Hx Alcohol Use: Yes Drug/Substance Use Hx: No Substance Use Type: Alcohol Hx Substance Use Treatment: No Review of Systems - Review of Systems Constitutional: No: Chills, Fever, Malaise Respiratory: Yes: Cough, Shortness of Breath. No: Wheezing Cardiac (ROS): No: Chest Pain *Physical Exam - Vital Signs Last Vital Signs Temp Pulse Resp BP Pulse Ox 98.2 F 60 20 139/72 97 12/19/16 12:25 12/19/16 12:25 12/19/16 12:25 12/19/16 12:25 12/19/16 12:25 - Physical Exam General Appearance: Yes: Appropriately Dressed. No: Apparent Distress HEENT: positive: Normal Voice Neck: positive: Supple Respiratory/Chest: positive: Other (possible exp wheeze on L upper lung field). negative: Respiratory Distress, Crackles, Rales, Rhonchi, Stridor Cardiovascular: positive: Regular Rate, S1, S2 Gastrointestinal/Abdominal: positive: Soft. negative: Tender Extremity: positive: Normal Inspection Integumentary: positive: Dry, Warm Neurologic: positive: Fully Oriented, Alert, Normal Mood/Affect ED Treatment Course - LABORATORY CBC & Chemistry Diagram: 12/19/16 13:25 12/19/16 13:25 - RADIOLOGY Radiology Studies Ordered: Category Date Time Status CHEST X-RAY PORTABLE* [RAD] Stat Radiology 12/19/16 13:01 Ordered Medical Decision Making - Medical Decision Making 12/19/16 13:15 86-year-old male history of hypertension on lisinopril, states he was a diabetic but after losing weight, no longer needed to be on medication, PNA, Here with productive cough with possible shortness of breath x several days. Denies chest pain, fever or chills. No tobacco history PMD: Dr Marks See exam R/o PNA, possibly viral Stable and well clarisse w/ ?expiratory wheeze to left upper lung field, rest of exam unremarkable -IVF -cxr -labs 12/19/16 14:07 Labs and CXR negative. Pt continues to appear well. States he is concerned that he currently doesn't have as much energy to run around and do his errands as he is very active at baseline. I explained to patient that he most likely have a viral illness that will necessitate rest, plenty of fluids and for him to take medications as prescribed. Patient's daughter at bedside and states she will do well check on patient. Plan is to discharge with [employer] and have patient follow-up with his PMD tomorrow *DC/Admit/Observation/Transfer Diagnosis at time of Disposition: Cough - Discharge Dispostion Disposition: HOME Condition at time of disposition: Improved - Prescriptions Prescriptions: Azithromycin 250 mg PO DAILY #4 tablet Guaifenesin Dm [Robitussin Dm] 10 ml GT Q6H #120 ml MDD 4 doses - Referrals Referrals: Antony Marks MD [Primary Care Provider] - - Patient Instructions Printed Discharge Instructions: Cough Additional Instructions: Take medications as prescribed, rest and maintain adequate hydration. If symptoms do not improve and or worsen, return to ED immediately. Follow-up with your PMD tomorrow
[2016-12-19 13:31] LABS: BASOPHIL 0.4 % (0-2.0); EOSINOPHIL 4.8 % (0-4.5); MCH 29.7 pg (25.7-33.7); MCHC 32.9 g/dl (32.0-35.9); MEAN CELL VOLUME 90.5 fl (80-96); MEAN PLT VOLUME 7.3 fl (7.5-11.1); NEUTROPHILS 60.3 % (42.8-82.8); PLATELET COUNT 303 K/MM3 (134-434); RDW 14.5 % (11.9-15.9); WHITE BLOOD COUNT 6.6 K/mm3 (4.0-10.0)
[2016-12-19] MEDS ORDERED: guaiFENesin/D-METHORPHAN HB 10 ML UNIT-DOSE CUPS ONE (13:39)
[2016-12-19 13:56] LABS: ALBUMIN 3.8 g/dl (3.4-5.0); ANION GAP 8 (8-16); BILIRUBIN,TOTAL 0.5 mg/dL (0.2-1.0); CO2 33 mmol/L (21-32); CREATININE 0.8 mg/dL (0.7-1.3); GLUCOSE,RANDOM 109 mg/dL (74-106); SGOT/AST 22 U/L (15-37); SGPT/ALT 33 U/L (12-78); TOT PROT 6.9 g/dl (6.4-8.2)
[2016-12-19 13:57] LABS: ALK PHOS 136 U/L (45-117)
[2016-12-19] MEDS ORDERED: AZITHROMYCIN 250 MG TABLET (FP) PO ONE (14:07)
[2016-12-19] MEDS ORDERED: AZITHROMYCIN 250 MG TABLET (FP) ONE (14:10)
[2016-12-19 16:10] VITALS: BP 144/86; PULSE 78; TEMP 98.8
== END 2016-12-19 16:10 | disposition home or self-care (01) ==
LOC: JER 12:16
PROC: 3E0337Z Introduction of Electrolytic and Water Balance Substance into Peripheral Vein, Percutaneous Approach (ICD-10-PCS; principal; 2016-12-19)
DX: R05 Cough (principal); E11.9 Type 2 diabetes mellitus without complications; I10 Essential (primary) hypertension; F41.9 Anxiety disorder, unspecified; E78.00 Pure hypercholesterolemia, unspecified; Z87.891 Personal history of nicotine dependence
CPT/HCPCS: 36415; 71010-TC; 80053; 85025; 99282-25

== ENCOUNTER 2017-06-27 14:05 | Emergency (ER) | payer OTHER ==
--- NOTE | 2017-06-27 14:54 | PDOC ---
History of Present Illness - General Stated Complaint: ANXIETY Time Seen by Provider: 06/27/17 14:47 Past History - Past Medical History Allergies/Adverse Reactions: Allergies Allergy/AdvReac Type Severity Reaction Status Date / Time No Known Allergies Allergy Verified 12/19/16 12:25 Home Medications: Ambulatory Orders Alprazolam [Xanax] 0.5 mg PO HS #2 tablet MDD 1 03/13/16 Aspirin [ASA -] 81 mg PO DAILY 03/13/16 Paroxetine HCl 25 mg PO DAILY 03/13/16 Lisinopril [Zestril] 5 mg PO DAILY 12/19/16 Anemia: No Asthma: No Cancer: No Cardiac Disorders: No Diabetes: Yes HTN: Yes Hypercholesterolemia: Yes Psychiatric Problems: Yes (ANXIETY.) - Surgical History Abdominal Surgery: Yes Appendectomy: Yes Neurologic Surgery: Yes (spinal fusion lumbar) - Immunization History Immunization Up to Date: No - Suicide/Smoking/Psychosocial Hx Smoking Status: No Smoking History: Never smoked Have you smoked in the past 12 months: No Number of Cigarettes Smoked Daily: 0 If you are a former smoker, when did you quit?: 50 years ago Hx Alcohol Use: Yes Drug/Substance Use Hx: No Substance Use Type: Alcohol Hx Substance Use Treatment: No
[2017-06-27 14:58] VITALS: BMI 25.8
--- NOTE | 2017-06-27 15:35 | PDOC ---
History of Present Illness - General Chief Complaint: Injury Stated Complaint: ANXIETY Time Seen by Provider: 06/27/17 14:47 History Source: Patient - History of Present Illness Timing/Duration: other (this am) Associated Symptoms: denies: chest pain, cough, fever/chills, headaches, loss of appetite, malaise, nausea/vomiting, shortness of breath, syncope, weakness Past History - Past Medical History Allergies/Adverse Reactions: Allergies Allergy/AdvReac Type Severity Reaction Status Date / Time No Known Allergies Allergy Verified 12/19/16 12:25 Home Medications: Ambulatory Orders Aspirin [ASA -] 81 mg PO DAILY 03/13/16 Paroxetine HCl 25 mg PO DAILY 03/13/16 Lisinopril [Zestril] 5 mg PO DAILY 12/19/16 Alprazolam [Xanax] 0.5 mg PO BID #10 tablet MDD 1 06/27/17 Anemia: No Asthma: No Cancer: No Cardiac Disorders: No Diabetes: Yes HTN: Yes Hypercholesterolemia: Yes Psychiatric Problems: Yes (ANXIETY.) - Surgical History Abdominal Surgery: Yes Appendectomy: Yes Neurologic Surgery: Yes (spinal fusion lumbar) - Immunization History Immunization Up to Date: No - Suicide/Smoking/Psychosocial Hx Smoking Status: No Smoking History: Never smoked Have you smoked in the past 12 months: No Number of Cigarettes Smoked Daily: 0 If you are a former smoker, when did you quit?: 50 years ago Information on smoking cessation initiated: No Hx Alcohol Use: Yes Drug/Substance Use Hx: No Substance Use Type: Alcohol Hx Substance Use Treatment: No Review of Systems - Review of Systems Constitutional: No: Chills, Fever Respiratory: No: Cough, Shortness of Breath Cardiac (ROS): No: Chest Pain, Palpitations, Syncope ABD/GI: No: Constipated, Diarrhea, Nausea, Vomiting, Abdominal cramping : No: Discharge Psychiatric: Yes: Anxiety *Physical Exam - Vital Signs Last Vital Signs Temp Pulse Resp BP Pulse Ox 98.9 F 88 16 141/77 100 06/27/17 14:51 06/27/17 14:51 06/27/17 14:51 06/27/17 14:51 06/27/17 14:51 - Physical Exam General Appearance: Yes: Appropriately Dressed HEENT: positive: Normal Voice Neck: positive: Supple Respiratory/Chest: positive: Lungs Clear, Normal Breath Sounds. negative: Respiratory Distress Cardiovascular: positive: Regular Rate, S1, S2 Gastrointestinal/Abdominal: positive: Soft. negative: Tender Musculoskeletal: negative: CVA Tenderness Extremity: positive: Normal Inspection Integumentary: positive: Dry, Warm Neurologic: positive: Fully Oriented, Alert, Other (appears mildly anxious) ED Treatment Course - LABORATORY CBC & Chemistry Diagram: 06/27/17 15:44 06/27/17 15:44 - RADIOLOGY Radiology Studies Ordered: Category Date Time Status CHEST X-RAY PORTABLE* [RAD] Stat Radiology 06/27/17 15:24 Ordered Medical Decision Making - Medical Decision Making 06/27/17 15:28 86-year-old male history of hypertension, hyperlipidemia, diabetes (diet- controlled), chronic back pain and anxiety on xanax, here with fall in setting of dizziness this am. Patient states he recently ran out of his xanax, which he takes mostly for sleep. 2 days ago, pt bought an [id number] sleep aid ( does not remember name of meds) and states he took meds 2 nights ago and that it helped him to sleep but that he remained wide awake last night despite taking medication. This a.m. when he got out of bed, became lightheaded at some point, which cause him to fall onto his knees. Denies hitting head. No LOC, headache, dizziness, nausea or vomiting. No significant pain or swelling to knees and was able to get himself up and ambulate since fall. Patient states he currently feels anxious. States he lives alone with no support as children lives far away or are too busy. Does not have any aids at home. States he feels lonely at times. No SI or HI See exam Dizziness w/ fall this am Unwitnessed Denies hitting head No pain at this time Ambulatory since fall No CP/SOB Sxs possibly due to insomnia vs new OTC sleep aid, less likely cardiac and no focal deficits -ekg -cxr -labs -discuss dispo w/ PMD Anxiety Ran out of xanax recently Mildly anxious in ED -dose of xanax in ED Social issue Resides alone w/ no support -Will contact case therapist to assist with home energy consultant 06/27/17 15:37 06/27/17 18: EKG unchanged compared to prior. Labs and chest x-ray wnl. CT read pending. Patient well-appearing and currently tolerating po in ED. Case discussed with Dr Puentes, who agrees that pt's dizziness/fall most likely secondary to insomnia or adverse rxn to OTC sleep aid and that if pt stable and feels well, can be discharged to f/u with PMD. Attempted to contact Dr. Marks, but was told that M.D. cannot be reached today. Pt well-appearing and continues to be stable. Currently tolerating po in ER. Pt's son now at bedside and reports that patient does not take xanax as instructed, is supposed to take 0.5mg BID but states pt takes 1 tab at bedtime and then if he wakes up in the middle of the night, he takes another one. States patient has appointment with Dr Marks tomorrow at 3pm and will f/u to discuss ED visit and possible home services ( case therapist and SW not available today). Pt instructed to refrain from over- the-counter sleeping aids in the future to prevent adverse reaction. 06/27/17 19:10 Pt signed out to HANANE Puentes pending CT read *DC/Admit/Observation/Transfer Diagnosis at time of Disposition: Dizziness, Anxiety - Discharge Dispostion Condition at time of disposition: Improved - Referrals - Patient Instructions Printed Discharge Instructions: DI for Anxiety -- Adult Additional Instructions: Please refrain from [id number] sleep aids in the future to prevent adverse reaction. Please take Xanax as prescribed. Please follow-up with Dr. Marks tomorrow as already scheduled to discuss ED visit today and possibly home services - Post Discharge Activity
[2017-06-27] MEDS ORDERED: SODIUM CHLORIDE 500 ML IV STA (15:36)
[2017-06-27] MEDS ORDERED: ALPRAZolam 0.25 MG TABLET PO ONE (15:36)
[2017-06-27] MEDS ORDERED: ALPRAZolam 0.25 MG TABLET ONE (15:42)
[2017-06-27 16:09] LABS: BASO % 0.2 % (0-2.0); EOS % 1.2 % (0-4.5); HEMOGLOBIN 14.5 GM/dL (11.7-16.9); LYMPH % 21.6 % (8-40); MCH 30.6 pg (25.7-33.7); MCHC 33.6 g/dl (32.0-35.9); MEAN CELL VOLUME 90.9 fl (80-96); MEAN PLT VOLUME 8.3 fl (7.5-11.1); MONO % 6.1 % (3.8-10.2); NEUT % 70.9 % (42.8-82.8); PLATELET COUNT 257 K/MM3 (134-434); RBC 4.73 M/mm3 (4.00-5.60); RDW 13.9 % (11.9-15.9); WHITE BLOOD COUNT 7.7 K/mm3 (4.0-10.0)
[2017-06-27 16:10] LABS: URINE APPEARANCE CLEAR; URINE BILIRUBIN NEGATIVE (NEGATIVE); URINE BLOOD 1+ (NEGATIVE); URINE COLOR LTYELLOW; URINE GLUCOSE (UA) NEGATIVE (NEGATIVE); URINE KETONE NEGATIVE (NEGATIVE); URINE LEUK ESTERASE NEGATIVE (NEGATIVE); URINE NITRITE NEGATIVE (NEGATIVE); URINE PROTEIN NEGATIVE (NEGATIVE); URINE UROBILINOGEN NEGATIVE mg/dL (0.2-1.0)
[2017-06-27 16:30] LABS: ALBUMIN 3.9 g/dl (3.4-5.0); ANION GAP 6 (8-16); BILIRUBIN,TOTAL 0.5 mg/dL (0.2-1.0); BLOOD UREA NITROGEN 12 mg/dL (7-18); CALCIUM 8.2 mg/dL (8.5-10.1); CHLORIDE 106 mmol/L (98-107); CO2 29 mmol/L (21-32); CREATININE 0.8 mg/dL (0.7-1.3); GLUCOSE,RANDOM 96 mg/dL (74-106); POTASSIUM 4.3 mmol/L (3.5-5.1); SGOT/AST 24 U/L (15-37); SGPT/ALT 25 U/L (12-78); SODIUM 141 mmol/L (136-145); TOT PROT 6.9 g/dl (6.4-8.2)
[2017-06-27 16:30] LABS: URINE BACTERIA RARE /hpf (NONE SEEN)
[2017-06-27 16:32] LABS: ALK PHOS 168 U/L (45-117)
[2017-06-27] MEDS ORDERED: ACETAMINOPHEN 325 MG TABLET (FP) ONE (17:22)
--- NOTE | 2017-06-27 19:24 | PDOC ---
*Physical Exam - Vital Signs Last Vital Signs Temp Pulse Resp BP Pulse Ox 98.9 F 88 16 141/77 100 06/27/17 14:51 06/27/17 14:51 06/27/17 14:51 06/27/17 14:51 06/27/17 14:51 ED Treatment Course - LABORATORY CBC & Chemistry Diagram: 06/27/17 15:44 06/27/17 15:44 - ADDITIONAL ORDERS Additional order review: Laboratory Results 06/27/17 06/27/17 15:44 15:37 Sodium 141 Potassium 4.3 Chloride 106 Carbon Dioxide 29 Anion Gap 6 L BUN 12 Creatinine 0.8 Creat Clearance w eGFR > 60 Random Glucose 96 Calcium 8.2 L Total Bilirubin 0.5 AST 24 ALT 25 D Alkaline Phosphatase 168 H D Creatine Kinase 114 Troponin I < 0.02 Total Protein 6.9 Albumin 3.9 Urine Color Ltyellow Urine Appearance Clear Urine pH 7.0 D Ur Specific [place] 1.010 Urine Protein Negative Urine Glucose (UA) Negative Urine Ketones Negative Urine Blood 1+ H Urine Nitrite Negative Urine Bilirubin Negative Urine Urobilinogen Negative Ur Leukocyte Esterase Negative Urine WBC (Auto) <1 Urine RBC (Auto) 4 Urine Bacteria Rare 06/27/17 15:44 RBC 4.73 MCV 90.9 MCHC 33.6 RDW 13.9 MPV 8.3 D Neutrophils % 70.9 Lymphocytes % 21.6 D Monocytes % 6.1 Eosinophils % 1.2 Basophils % 0.2 - Medications Given in the ED: ED Medications Discontinued Medications Generic Name Dose Route Start Last Admin Trade Name Freq PRN Reason Stop Dose Admin Alprazolam 0.25 mg 06/27/17 15:36 06/27/17 15:40 Xanax - PO 06/27/17 15:37 0.25 mg ONCE ONE Administration Sodium Chloride 500 mls @ 500 mls/hr 06/27/17 15:36 06/27/17 15:40 Normal Saline - IV 06/27/17 16:35 500 mls/hr ASDIR STA Administration Medical Decision Making - Medical Decision Making 06/27/17 19:27 CT head negative *DC/Admit/Observation/Transfer Diagnosis at time of Disposition: Dizziness, Anxiety - Discharge Dispostion Condition at time of disposition: Improved - Referrals - Patient Instructions Printed Discharge Instructions: DI for Anxiety -- Adult Additional Instructions: Please refrain from [id number] sleep aids in the future to prevent adverse reaction. Please take Xanax as prescribed. Please follow-up with Dr. Marks tomorrow as already scheduled to discuss ED visit today and possibly home services - Post Discharge Activity
[2017-06-27 19:47] VITALS: BP 131/72; PULSE 83; TEMP 98.1
--- NOTE | 2017-06-28 08:54 | EKG ---
Test Reason : Blood Pressure : / mmHG Vent. Rate : 058 BPM Atrial Rate : 058 BPM P-R Int : 138 ms QRS Dur : 070 ms QT Int : 414 ms P-R-T Axes : 086 006 039 degrees QTc Int : 406 ms POOR DATA QUALITY, INTERPRETATION MAY BE ADVERSELY AFFECTED SINUS BRADYCARDIA WITH PREMATURE ATRIAL COMPLEXES NONSPECIFIC ST ABNORMALITY ABNORMAL ECG WHEN COMPARED WITH ECG OF 13-SEP-2016 08:46, NO SIGNIFICANT CHANGE WAS FOUND Confirmed by Tung Partida MD ([id number]) on 06/28/2017 8:54:08 AM Referred By: Confirmed By:Tung Partida MD
== END 2017-06-27 19:50 | disposition home or self-care (01) ==
LOC: JER 14:05
PROC: 3E0337Z Introduction of Electrolytic and Water Balance Substance into Peripheral Vein, Percutaneous Approach (ICD-10-PCS; principal; 2017-06-27)
DX: F41.9 Anxiety disorder, unspecified (principal); R42 Dizziness and giddiness; I10 Essential (primary) hypertension; E11.9 Type 2 diabetes mellitus without complications; E78.5 Hyperlipidemia, unspecified; M54.5 Low back pain; G89.29 Other chronic pain; W18.39XA Other fall on same level, initial encounter; Y93.89 Activity, other specified; Y92.032 Bedroom in apartment as the place of occurrence of the external cause
CPT/HCPCS: 36415; 70450-TC; 71045-TC-FY; 80053; 81003; 81015; 82550; 84484; 85025; 93005; 93010; 96360; 99283-25

== ENCOUNTER 2018-05-22 11:38 | Emergency (ER) | payer OTHER ==
--- NOTE | 2018-05-22 12:12 | PDOC ---
History of Present Illness - General Chief Complaint: Weakness Stated Complaint: Weakness Time Seen by Provider: 05/22/18 12:09 - History of Present Illness Initial Comments: Ilir Williamson is an 87yo man with a PMH of HTN, HLD, h/o "dizziness" w/ multiple falls, diet-controlled DM, chronic back pain and anxiety who presents to the ED today reporting dizziness at home this morning. He reports that he frequently feels dizzy, and the episode this morning was no different than his normal dizziness. He denies any associated chest pain, shortness of breath, confusion, slurred speech, weakness, or other focal neurological symptoms. He does endorse a sore throat and headache for the past week, but he states that he was exposed to someone with a "cold" at a democrat, and several other people have the same symptoms. He reports that he decided to call an ambulance today because he was scared about the dizziness as he has been feeling sick recently. He had an appointment scheduled with his PMD, Dr Marks, today; however, he called the office and was referred to the ED as told the office that he was concerned. At this time, he no longer has any dizziness but says he is still concerned. Past History - Past Medical History Allergies/Adverse Reactions: Allergies Allergy/AdvReac Type Severity Reaction Status Date / Time No Known Allergies Allergy Verified 05/22/18 12:28 Home Medications: Ambulatory Orders Aspirin [ASA -] 81 mg PO DAILY 03/13/16 Paroxetine HCl 25 mg PO DAILY 03/13/16 Lisinopril [Zestril] 5 mg PO DAILY 12/19/16 Alprazolam [Xanax] 0.25 mg PO Q12H #10 tablet MDD 2 10/03/17 Anemia: No Asthma: No Cancer: No Cardiac Disorders: No CVA: No COPD: No Diabetes: Yes HTN: Yes Hypercholesterolemia: Yes Psychiatric Problems: Yes (ANXIETY.) - Surgical History Abdominal Surgery: Yes Appendectomy: Yes Neurologic Surgery: Yes (spinal fusion lumbar) - Immunization History Immunization Up to Date: No - Suicide/Smoking/Psychosocial Hx Smoking Status: No Smoking History: Never smoked Have you smoked in the past 12 months: No Number of Cigarettes Smoked Daily: 0 If you are a former smoker, when did you quit?: 50 years ago Hx Alcohol Use: Yes Drug/Substance Use Hx: No Substance Use Type: Alcohol Hx Substance Use Treatment: No Review of Systems - Review of Systems Comments:: General: No fevers, no chills, no weight or appetite change, no malaise HEENT: No changes in vision, no changes in hearing, no congestion. +sore throat CV: No chest pain, no palpitations, no LE edema Pulm: No SOB, no wheezing. +productive cough GI: No nausea or vomiting, no change in bowel habits, no melena : No frequency, no urgency, no dysuria Musc: No back pain, no joint swelling, no recent injury Skin: No rash, no lesions, no erythema Endo: No excessive thirst, no heat/cold intolerance Heme: No unusual bruising or bleeding, no swollen glands Neuro: No syncope, no numbness/tingling, no focal weakness. +dizzy (room spinning) when standing up Vasc: No claudication Psych: No recent change in mood, no SI or HI *Physical Exam - Physical Exam Comments: General: Comfortable, no acute distress HEENT: PERRL, EOMI, MMM, voice normal, normal neck ROM, no LAD, TM clear b/l Cards: RRR, no murmur appreciated Pulm: Comfortable on room air, clear to auscultation bilaterally Abd: Soft, nontender, nondistended : No CVA tenderness Ext: Atraumatic. No LE edema. ROM intact. Strength 5/5 and equal bilaterally Vasc: Extremities Skin: Normal color, no rashes or lesions Neuro: A&Ox3, CN grossly intact, normal speech, motor/sensory grossly intact and symmetric Psych: Mood appropriate to situation ED Treatment Course - LABORATORY CBC & Chemistry Diagram: 05/22/18 12:30 05/22/18 13:50 Medical Decision Making - Medical Decision Making 05/22/18 12:40 hypertension, hyperlipidemia, diabetes (diet-controlled), chronic back pain and anxiety - Per pt, symptoms this morning were unchanged from previous but he was very concerned today - No clear diagnosis seen per chart review - Benign physical exam and vitals reassuring; no associated symptoms suggesting cardiac or pulmonary pathology. No new symptoms today that are concerning for any acute event - CBC, CMP, UA ordered for evaluation 05/22/18 13:36 - Spoke to lab; chemistry "slightly hemolized" w/ potassium 6.2. Will reorder potassium as level is likely falsely elevated 05/22/18 15:19 - Repeat potassium 4.2, previous elevation likely due to hemolyzed sample - EKG with sinus bradycardia (HR 54) and otherwise w/o concerning abnormalities. Trop negative - Discussed results with Mr Clay. He reports feeling improved. Would like a refill for his Xanax, but discussed that he should follow up with his PMD for medication refills. Will try to reach Dr Marks by phone. 05/22/18 18:10 - Second message left w/ Dr Marks's office approximately 16:45. No call back yet - Pt feels significantly improved - Able to ambulate w/ minimal support - uses cane at home. - Plan to d/c home. Discussed with Dr Dobbins. Sharon Davis PGY1 *DC/Admit/Observation/Transfer Diagnosis at time of Disposition: Dizziness - Discharge Dispostion Disposition: HOME Condition at time of disposition: Stable Decision to Admit order: No - Referrals Referrals: Antony Marks MD [Staff Physician] - - Patient Instructions Printed Discharge Instructions: DI for Vertigo, DI for Dizziness-Nonvertigo Additional Instructions: Discharge Instructions: - You were seen in the emergency department for dizziness at home - You had blood tests, urine tests, and an EKG (heart test) completed. There was nothing concerning seen on any of your results. - Your dizziness was likely due to your previously evaluated dizziness, but you may need additional testing in the future for additional evaluation. Home Care: - Drink plenty of fluids - Continue to take all of your previously prescribed medications - Sit down or hold something for support if you feel dizzy at home Follow Up: - Make an appointment to see your primary physician within the next 2-3 days for your previously scheduled appointment - Seek emergency care if you have severe or worsening dizziness, fall at home ( especially if you hit your head), or you have any medical emergency such as chest pain or shortness of breath. - Post Discharge Activity
--- NOTE | 2018-05-22 12:29 | PDOC ---
Attending Attestation - HPI HPI: 05/22/18 15:47 87 y/o M with a h/o of hypertension, hyperlipidemia, diabetes (diet-controlled) , chronic back pain, chronic dizziness, and anxiety BIBEMS who presents with lightheadedness. Patient reports 3 days of URI symptoms noting cough, subjective fever, chest tightness, and lightheadedness. Patient reports intermittent episodes of nausea and dizziness since attending a alliance party on . He states he feels lightheaded when he stands up. Patient also reports 1 episode of dark watery diarrhea this morning after taking a laxative because he was constipated last night. He states he had an appointment with Dr. Rondon this morning, and told the secretary book keeper at the office that he was feeling very dizzy, which prompted her to activate EMS to the patients residence. At presentation, the patient reports headache and dizziness. Denies abdominal pain, blurry vision, chest pain, shortness of breath, headache , fevers, chills, constipation, dysuria, hematuria, and urinary urgency/ frequency. <Hitesh Varghese - Last Filed: 05/22/18 15:47> - Resident Resident Name: Sharon Davis - ED Attending Attestation I have performed the following: I have examined & evaluated the patient, The case was reviewed & discussed with the resident, I agree w/resident's findings & plan, Exceptions are as noted - Physicial Exam PE: 05/22/18 13:18 GENERAL: The patient is awake, alert, and fully oriented, Nontoxic - in no acute distress. HEAD: Normocephalic, atraumatic. EYES: extraocular movements intact, sclera anicteric, conjunctiva clear. No nystagmus ENT: Normal voice, Moist mucous membranes. NECK: Normal range of motion, supple LUNGS: Breath sounds equal, clear to auscultation bilaterally. No wheezes, no rhonchi, no rales. HEART: Regular rate and rhythm, normal S1 and S2 without murmur, rub or gallop. ABDOMEN: Soft, nontender, No guarding, no rebound. . No CVA tenderness NEUROLOGICAL: No facial assymetry, Normal speech, moving all 4 extremities spontaneously and symmetric, normal finger to nose, strength 5/[address] UE b/l. PSYCH: Normal mood, normal affect. SKIN: Warm, Dry, normal turgor, - Medical Decision Making 05/22/18 13:28 87y M hx of htn, hl, dm cbp, anxiety, presents with episode of diziness this morning that has since resolved w/o associated vision changes, focal numbnes/ tingling/weakness. recent cough and n/v/d w/o abd pain. on exam pt in no distress with normal neuro exam will ck labs to r/o anemia, metabolic deragenment ekg to screen fora rthmia will reassess and dw dr rondon A portion of this note was documented by scribe services under my direction. I have reviewed the details of the note, within reason, and agree with the documentation with the following case summary and management plan written by me 05/22/18 18:04 Patient is feeling well labs unremarkable will discharge patient with PMD follow -up he is ambulating feels well when ambulating Will have him follow-up with Dr. Rondon as an outpatient Return precautions were discussed <Clark Dobbins - Last Filed: 05/22/18 18:05> Heart Score/ECG Review - ECG Impressions Comment:: 05/22/18 14:47 Twelve-lead EKG was performed and reviewed by me. There is normal sinus rhythm with a rate of 54 Normal R wave progression Impression: sinus bradycardia <Clark Dobbins - Last Filed: 05/22/18 18:05>
[2018-05-22 12:37] VITALS: TEMP 98.6; BMI 25.8
[2018-05-22] MEDS ORDERED: LACTATED RINGERS SOLUTION 1000 ML INFUS.BAG IV ONE (12:39)
[2018-05-22 12:49] LABS: BASO % 0.2 % (0-2.0); EOS % 3.9 % (0-4.5); HEMATOCRIT 41.3 % (35.4-49); HEMOGLOBIN 14.1 GM/dL (11.7-16.9); LYMPH % 29.5 % (8-40); MCH 30.7 pg (25.7-33.7); MEAN CELL VOLUME 90.2 fl (80-96); MONO % 7.5 % (3.8-10.2); NEUT % 58.9 % (42.8-82.8); PLATELET COUNT 295 K/MM3 (134-434); RBC 4.59 M/mm3 (4.00-5.60); RDW 14.4 % (11.9-15.9); WHITE BLOOD COUNT 5.6 K/mm3 (4.0-10.0)
[2018-05-22 13:31] LABS: ALBUMIN 3.4 g/dl (3.4-5.0); ALK PHOS 157 U/L (45-117); ANION GAP 4 MMOL/L (8-16); BILIRUBIN,TOTAL 0.5 mg/dL (0.2-1); BLOOD UREA NITROGEN 11 mg/dL (7-18); CALCIUM 8.5 mg/dL (8.5-10.1); CHLORIDE 104 mmol/L (98-107); CO2 29 mmol/L (21-32); CREATININE 0.7 mg/dL (0.55-1.3); GLUCOSE,RANDOM 102 mg/dL (74-106); SGOT/AST 39 U/L (15-37); SGPT/ALT 23 U/L (13-61); SODIUM 136 mmol/L (136-145); TOT PROT 6.9 g/dl (6.4-8.2)
[2018-05-22 13:34] LABS: POTASSIUM 6.2 mmol/L (3.5-5.1)
[2018-05-22 13:37] LABS: URINE APPEARANCE CLEAR; URINE BILIRUBIN NEGATIVE (<2.0 mg/dL); URINE COLOR LTYELLOW; URINE GLUCOSE (UA) NEGATIVE (NEGATIVE); URINE KETONE NEGATIVE (NEGATIVE); URINE LEUK ESTERASE NEGATIVE (NEGATIVE); URINE NITRITE NEGATIVE (NEGATIVE); URINE PROTEIN NEGATIVE (NEGATIVE); URINE UROBILINOGEN NEGATIVE mg/dL (0.2-1.0)
[2018-05-22 14:52] LABS: ANION GAP 7 MMOL/L (8-16); BLOOD UREA NITROGEN 11 mg/dL (7-18); CALCIUM 8.5 mg/dL (8.5-10.1); CHLORIDE 104 mmol/L (98-107); CO2 28 mmol/L (21-32); CREATININE 0.7 mg/dL (0.55-1.3); GLUCOSE,RANDOM 132 mg/dL (74-106); POTASSIUM 4.3 mmol/L (3.5-5.1); SODIUM 139 mmol/L (136-145)
[2018-05-22 17:02] VITALS: BP 137/67; PULSE 68
--- NOTE | 2018-05-23 18:16 | EKG ---
Test Reason : Blood Pressure : / mmHG Vent. Rate : 054 BPM Atrial Rate : 054 BPM P-R Int : 158 ms QRS Dur : 070 ms QT Int : 416 ms P-R-T Axes : 033 007 042 degrees QTc Int : 394 ms SINUS BRADYCARDIA OTHERWISE NORMAL ECG Confirmed by MD JOLENE, KULDEEP ([id number]) on 05/23/2018 6:16:09 PM Referred By: Confirmed By:KULDEEP FERNÁNDEZ MD
== END 2018-05-22 18:37 | disposition home or self-care (01) ==
LOC: JER 11:38
DX: I10 Essential (primary) hypertension (principal); E11.9 Type 2 diabetes mellitus without complications; E78.00 Pure hypercholesterolemia, unspecified; F41.9 Anxiety disorder, unspecified; M54.5 Low back pain; G89.29 Other chronic pain
CPT/HCPCS: 36415; 80048; 80053; 81003; 84484; 85025; 93005; 93010; 99282-25

== ENCOUNTER 2018-06-16 14:12 | Emergency (ER) | payer OTHER ==
[2018-06-16 14:29] VITALS: TEMP 98.1; BMI 25.8
--- NOTE | 2018-06-16 15:48 | PDOC ---
History of Present Illness - General Chief Complaint: Lightheaded Stated Complaint: Lightheaded Time Seen by Provider: 06/16/18 15:04 History Source: Patient Exam Limitations: No Limitations - History of Present Illness Initial Comments: 06/16/18 15:13 87-year-old male presents to ED with complaints of dizziness upon awakening this morning. Patient states that up to go to the bathroom and felt as if the room was spinning having to hold onto the dresser. Patient denied headache, visual changes or nausea with symptoms. Patient also denied chest pain or shortness of breath. Patient currently asymptomatic with complaints of dizziness but states did not eat breakfast this morning and feels generally weak Timing/Duration: resolved prior to arrival Severity: mild Associated Symptoms: reports: weakness Past History - Travel Traveled outside of the country in the last 30 days: No Close contact w/someone who was outside of country & ill: No - Past Medical History Allergies/Adverse Reactions: Allergies Allergy/AdvReac Type Severity Reaction Status Date / Time No Known Allergies Allergy Verified 06/16/18 14:18 Home Medications: Ambulatory Orders Aspirin [ASA -] 81 mg PO DAILY 03/13/16 Paroxetine HCl 25 mg PO DAILY 03/13/16 Lisinopril [Zestril] 5 mg PO DAILY 12/19/16 Alprazolam [Xanax] 0.25 mg PO Q12H #10 tablet MDD 2 10/03/17 Anemia: No Asthma: No Cancer: No Cardiac Disorders: No CVA: No COPD: No Diabetes: Yes HTN: Yes Hypercholesterolemia: Yes Psychiatric Problems: Yes (ANXIETY.) - Surgical History Abdominal Surgery: Yes Appendectomy: Yes Neurologic Surgery: Yes (spinal fusion lumbar) - Immunization History Immunization Up to Date: No - Suicide/Smoking/Psychosocial Hx Smoking Status: No Smoking History: Never smoked Have you smoked in the past 12 months: No Number of Cigarettes Smoked Daily: 0 If you are a former smoker, when did you quit?: 50 years ago Information on smoking cessation initiated: No Hx Alcohol Use: No Drug/Substance Use Hx: No Substance Use Type: Alcohol Hx Substance Use Treatment: No Patient Lives Alone: Yes Lives with/in: lives alone Review of Systems - Review of Systems Able to Perform ROS?: Yes Constitutional: Yes: Weakness HEENTM: No: Symptoms Reported Respiratory: No: Symptoms reported Cardiac (ROS): Yes: Lightheadedness ABD/GI: No: Symptoms Reported : No: Symptoms Reported Musculoskeletal: No: Symptoms Reported Integumentary: No: Symptoms Reported Neurological: Yes: Dizziness Endocrine: No: Symptoms Reported Hematologic/Lymphatic: No: Symptoms Reported *Physical Exam - Vital Signs Last Vital Signs Temp Pulse Resp BP Pulse Ox 98.1 F 60 16 144/77 98 06/16/18 14:23 06/16/18 14:23 06/16/18 14:23 06/16/18 14:23 06/16/18 14:23 - Physical Exam General Appearance: Yes: Nourished, Appropriately Dressed. No: Apparent Distress HEENT: positive: Pharynx Normal. negative: Pale Conjunctivae Neck: positive: Supple Respiratory/Chest: positive: Lungs Clear, Normal Breath Sounds. negative: Respiratory Distress, Accessory Muscle Use Cardiovascular: positive: Regular Rhythm, Regular Rate. negative: Murmur Gastrointestinal/Abdominal: positive: Soft. negative: Tenderness Integumentary: positive: Normal Color, Warm, Moist Neurologic: positive: Normal Mood/Affect, Motor Strength 5/5, Other (negative Hallpike's) Moderate Sedation - Procedure Monitoring Vital Signs: Procedure Monitoring Vital Signs Temperature 98.1 F 06/16/18 14:23 Pulse Rate 60 06/16/18 14:23 Respiratory Rate 16 06/16/18 14:23 Blood Pressure 144/77 06/16/18 14:23 O2 Sat by Pulse Oximetry (%) 98 06/16/18 14:23 ED Treatment Course - LABORATORY CBC & Chemistry Diagram: 06/16/18 15:40 - RADIOLOGY Radiology Studies Ordered: Category Date Time Status HEAD CT WITHOUT CONTRAST [CT] Stat CT Scan 06/16/18 15:10 Ordered Medical Decision Making - Medical Decision Making 06/16/18 15:10 Chief complaint. Patient complains of dizziness upon standing this morning. Patient currently has no complaints of dizziness but complains of mild generalized weakness and decreased appetite since this morning. Patient denies history of vertigo Exam. Patient had no acute findings. Patient with negative Hallpike's. Plan: Labs, urine, EKG, chest x-ray and head CT ordered 06/16/18 16:48 Selected Entries 06/16/18 06/16/18 14:23 16:05 Pulse Rate 60 Pulse Rate [ 62 Right side Supine] Blood Pressure 144/77 Blood Pressure 109/62 [Right side Standing] Laboratory Tests 06/16/18 15:54 Urine Ketones Trace H Ur Leukocyte Esterase 1+ H Urine WBC (Auto) Pending Urine RBC (Auto) Pending patient ordered for IV fluids secondary to positive orthostatic findings and subjective complaint while standing 06/16/18 17:32 Laboratory Tests 06/16/18 06/16/18 06/16/18 15:04 15:40 15:54 WBC 5.9 Hgb 14.1 Hct 41.1 Plt Count 286 Absolute Neuts (auto) 4.1 Magnesium 2.5 H Creatine Kinase 135 Troponin I < 0.02 Urine Ketones Trace H Ur Leukocyte Esterase 1+ H Urine WBC (Auto) 4 Urine RBC (Auto) 2 06/16/18 18:[address] negative for acute findings. Patient states feeling much better after receiving IV fluids. Patient requesting to eat dinner tray and be discharged home. 06/16/18 18:09 *DC/Admit/Observation/Transfer Diagnosis at time of Disposition: Dizziness, Dehydration, Weakness - Discharge Dispostion Disposition: HOME Condition at time of disposition: Improved - Referrals Referrals: Misty Perkins MD [Primary Care Provider] - - Patient Instructions Printed Discharge Instructions: DI for Dizziness-Nonvertigo Additional Instructions: Please continue to drink fluids throughout the day and stay well-hydrated. Eat small frequent meals Get up in increments from sitting and lying position - Post Discharge Activity
[2018-06-16 15:49] LABS: BASO % 0.2 % (0-2.0); EOS % 1.8 % (0-4.5); HEMATOCRIT 41.1 % (35.4-49); HEMOGLOBIN 14.1 GM/dL (11.7-16.9); LYMPH % 22.6 % (8-40); MCH 31.6 pg (25.7-33.7); MCHC 34.3 g/dl (32.0-35.9); MEAN CELL VOLUME 92.2 fl (80-96); MEAN PLT VOLUME 7.6 fl (7.5-11.1); NEUT % 68.4 % (42.8-82.8); PLATELET COUNT 286 K/MM3 (134-434); RBC 4.46 M/mm3 (4.00-5.60); RDW 14.1 % (11.9-15.9); WHITE BLOOD COUNT 5.9 K/mm3 (4.0-10.0)
[2018-06-16] MEDS ORDERED: MECLIZINE HCL 25 MG TABLET (FP) PO ONE (16:00)
[2018-06-16] MEDS ORDERED: SODIUM CHLORIDE 500 ML IV STA (16:00)
[2018-06-16 16:15] LABS: MAGNESIUM 2.5 mg/dL (1.8-2.4)
[2018-06-16 16:30] LABS: URINE APPEARANCE CLEAR; URINE BILIRUBIN NEGATIVE (<2.0 mg/dL); URINE COLOR LTYELLOW; URINE GLUCOSE (UA) NEGATIVE (NEGATIVE); URINE KETONE TRACE (NEGATIVE); URINE LEUK ESTERASE 1+ (NEGATIVE); URINE NITRITE NEGATIVE (NEGATIVE); URINE PROTEIN NEGATIVE (NEGATIVE); URINE UROBILINOGEN NEGATIVE mg/dL (0.2-1.0)
--- NOTE | 2018-06-16 16:37 | PDOC ---
*Physical Exam - Vital Signs Last Vital Signs Temp Pulse Resp BP Pulse Ox 98.1 F 62 16 155/74 98 06/16/18 14:23 06/16/18 16:05 06/16/18 14:23 06/16/18 16:05 06/16/18 14:23 ED Treatment Course - LABORATORY CBC & Chemistry Diagram: 06/16/18 15:40 - ADDITIONAL ORDERS Additional order review: Laboratory Results 06/16/18 15:04 Magnesium 2.5 H Creatine Kinase 135 Troponin I < 0.02 06/16/18 15:40 RBC 4.46 MCV 92.2 MCHC 34.3 RDW 14.1 MPV 7.6 Neutrophils % 68.4 Lymphocytes % 22.6 D Monocytes % 7.0 Eosinophils % 1.8 Basophils % 0.2 Medical Decision Making - Medical Decision Making 06/16/18 16:36 Pt seen by the Advanced Practice Provider under my direct supervision Ancillary studies reviewed I agree with plan as outlined by the Advanced Practice Provider HANANE West *DC/Admit/Observation/Transfer - Referrals Referrals: Misty Perkins MD [Primary Care Provider] - - Patient Instructions - Post Discharge Activity
[2018-06-16 16:47] LABS: EPI CELLS RARE /HPF (FEW)
[2018-06-16 18:50] VITALS: BP 110/64; PULSE 67
--- NOTE | 2018-06-17 14:42 | EKG ---
Test Reason : Blood Pressure : / mmHG Vent. Rate : 057 BPM Atrial Rate : 057 BPM P-R Int : 130 ms QRS Dur : 066 ms QT Int : 412 ms P-R-T Axes : 111 017 052 degrees QTc Int : 401 ms SINUS BRADYCARDIA OTHERWISE NORMAL ECG WHEN COMPARED WITH ECG OF 22-MAY-2018 14:15, NO SIGNIFICANT CHANGE WAS FOUND Confirmed by Tung Partida MD ([id number]) on 06/17/2018 2:41:50 PM Referred By: Confirmed By:Tung Partida MD
== END 2018-06-16 19:47 | disposition home or self-care (01) ==
LOC: JER 14:12
PROC: 3E0337Z Introduction of Electrolytic and Water Balance Substance into Peripheral Vein, Percutaneous Approach (ICD-10-PCS; principal; 2018-06-16)
DX: E86.0 Dehydration (principal); R42 Dizziness and giddiness; I10 Essential (primary) hypertension; E11.9 Type 2 diabetes mellitus without complications; E78.00 Pure hypercholesterolemia, unspecified; F41.9 Anxiety disorder, unspecified
CPT/HCPCS: 36415; 70450-TC; 81003; 81015; 82550; 83735; 84484; 85025; 87086; 93005; 93010; 96360; 99283-25; J7030

== ENCOUNTER 2018-08-12 16:53 | Emergency (ER) | payer OTHER ==
[2018-08-12 17:06] VITALS: BP 130/67; PULSE 84; TEMP 98.5; BMI 24.7
[2018-08-12] MEDS ORDERED: DIPHTH,PERTUSS(ACELL),TET 0.5 ML DISP.SYRIN IM ONE ×2 (17:46→18:00)
--- NOTE | 2018-08-12 17:53 | PDOC ---
History of Present Illness - General Chief Complaint: Injury Stated Complaint: FALL,HEAD INJURY Time Seen by Provider: 08/12/18 17:19 Past History - Past Medical History Allergies/Adverse Reactions: Allergies Allergy/AdvReac Type Severity Reaction Status Date / Time No Known Allergies Allergy Verified 06/16/18 14:18 Home Medications: Ambulatory Orders Aspirin [ASA -] 81 mg PO DAILY 03/13/16 Paroxetine HCl 25 mg PO DAILY 03/13/16 Lisinopril [Zestril] 5 mg PO DAILY 12/19/16 Alprazolam [Xanax] 0.25 mg PO HS MDD 2 08/12/18 Anemia: No Asthma: No Cancer: No Cardiac Disorders: No CVA: No COPD: No Diabetes: Yes HTN: Yes Hypercholesterolemia: Yes Psychiatric Problems: Yes (ANXIETY.) - Surgical History Abdominal Surgery: Yes Appendectomy: Yes Neurologic Surgery: Yes (spinal fusion lumbar) - Immunization History Immunization Up to Date: No - Suicide/Smoking/Psychosocial Hx Smoking Status: No Smoking History: Former smoker Have you smoked in the past 12 months: No Number of Cigarettes Smoked Daily: 0 If you are a former smoker, when did you quit?: 50 years ago Information on smoking cessation initiated: No Hx Alcohol Use: No Drug/Substance Use Hx: No Substance Use Type: Alcohol Hx Substance Use Treatment: No *Physical Exam - Vital Signs Last Vital Signs Temp Pulse Resp BP Pulse Ox 98.5 F 84 18 130/67 98 08/12/18 17:03 08/12/18 17:03 08/12/18 17:03 08/12/18 17:03 08/12/18 17:03 ED Treatment Course - LABORATORY CBC & Chemistry Diagram: 08/12/18 18:45 08/12/18 18:45 - RADIOLOGY Radiology Studies Ordered: Category Date Time Status CERVICAL SPINE CT W/O CONTR [CT] Stat CT Scan 08/12/18 17:[address] WITHOUT CONTRAST [CT] Stat CT Scan 08/12/18 17:46 Ordered Radiograph Interpretation: Head CT: Jairo Lyles MD wrote on Aug 12, 2018 at 06:59 PM: Referring Physician: BISHOP CHO Patient Name: ELIZA ROGERS THIS IS A PRELIMINARY REPORT FROM [facility] DATE OF SERVICE: 2018-08-12 18:15:53 IMAGES: 155 EXAM: HEAD CT WITHOUT CONTRAST History: 88-year-old male status post fall Comparison: None Procedure: CT scan head, dated August 12, 2018 . Axial images obtained followed by coronal and sagittal reconstructions. Study performed unenhanced. Findings: Visualized portion of the paranasal sinuses, mastoid air cells, middle ear cavities and external ear canals are air filled. No evidence of a depressed skull fracture. Mild ventriculomegaly is present, commensurate with dilatation to the basilar cisterns, sylvian fissures and cerebral sulci. Minimal small vessel periventricular ischemic changes. There is no evidence of an intra-or extra-axial mass lesion, mass-effect or bleed. Osman- white differentiation is maintained. No hyperdense vessel sign identified. Mild thinning to the corpus callosum consistent with aging. Craniocervical junction normal in appearance. Impression: 1. No evidence of a depressed skull fracture nor intracranial bleed. 2. Mild atrophy with minimal small vessel periventricular ischemic changes. One or more of the following dose reduction techniques were used: automated exposure control, adjustment of the mA and/or kV according to patient size, use of iterative reconstructive technique. THIS DOCUMENT HAS BEEN ELECTRONICALLY SIGNED Jairo Lyles MD 08/12/2018 18:58 EST C-Spine CT: Jairo Lyles MD wrote on Aug 12, 2018 at 07:05 PM: Referring Physician: BISHOP CHO Patient Name: ELIZA ROGERS THIS IS A PRELIMINARY REPORT FROM [facility] DATE OF SERVICE: 2018-08-12 18:13:14 IMAGES: [id number] EXAM: CERVICAL SPINE CT W/O CONTR History: 88-year-old male status post fall Comparison: None Procedure: CT scan C Spine, dated August 12, 2018 . Axial images obtained followed by coronal and sagittal reconstructions. Study performed unenhanced. Findings: Straightening to the normal lordotic curvature of the cervical spine. No prevertebral soft tissue swelling identified. No compromise to the cervical airway noted. No acute fracture or dislocation to the bones of the cervical spine evident. Degenerative disc disease noted throughout the cervical spine, most marked at the C5-6 and C6-7 disc levels. Marked calcification of the transverse ligament present. Degenerative change noted in lateral dens interval. Multilevel bilateral facet arthropathy. No foraminal encroachment bilaterally at the C5-6 level dated uncovertebral joint hypertrophy. Spinal canal stenosis present at this level as well. Left-sided neural foraminal encroachment C6-7 level related to uncovertebral joint hypertrophy. No foraminal encroachment right side, C3-4 and C4-5 levels related to facet arthropathy. Cervicothoracic alignment intact. Lung apices are clear. Impression: 1. No acute fracture or dislocation of the cervical spine evident. Straightening to the normal lordotic curvature may reflect muscular spasm/pain/patient positioning. 2. Multilevel degenerative disc disease cervical spine; most marked at C5-6 and C6-7 levels. 3. Neural foraminal and spinal canal stenosis at the levels described above. 4. Multilevel bilateral facet arthropathy. One or more of the following dose reduction techniques were used: automated exposure control, adjustment of the mA and/or kV according to patient size, use of iterative reconstructive technique. THIS DOCUMENT HAS BEEN ELECTRONICALLY SIGNED Jairo Lyles MD 08/12/2018 19:04 EST *DC/Admit/Observation/Transfer Diagnosis at time of Disposition: Laceration of forehead without complication Qualifiers: Encounter type: initial encounter Qualified Code(s): S01.81XA - Laceration without foreign body of other part of head, initial encounter - Discharge Dispostion Disposition: HOME Condition at time of disposition: Good Decision to Admit order: No - Referrals Referrals: Antony Marks MD [Primary Care Provider] - - Patient Instructions Printed Discharge Instructions: How to Prevent Falls, DI for Laceration Repair With Dermabond Additional Instructions: You were seen today for a cut on your forehead after falling. Your head and neck CT were normal today. Your blood work was normal. Dermabond (skin glue) was placed on your wound. It will fall off by itself likely within the next 5 days. Keep the area clean. You may shower but do not submerge the area for the next 5 days. You can take over the counter Tylenol as needed for pain. Take as directed on the package insert. Do not exceed the recommended dosage. Follow up with your primary care physician within the next week. You will need to call to make an appointment. Go to the nearest emergency department if your condition worsens, you develop signs of an infection, or you feel like you need additional emergency evaluation. Print Language: LITHUANIAN - Post Discharge Activity
--- NOTE | 2018-08-12 18:14 | PDOC ---
Attending Attestation - Resident Resident Name: Rambo Holden - ED Attending Attestation I have performed the following: I have examined & evaluated the patient, The case was reviewed & discussed with the resident, I agree w/resident's findings & plan, Exceptions are as noted <Veronica Damon - Last Filed: 08/12/18 18:14> - HPI HPI: The patient is an 88 year old male, with a significant PMH of right knee osteoarthritis, anxiety, DM, HTN, and HLD, who presents to the emergency department today s/p unwitnessed fall prior to arrival. Patient reports that he was walking earlier today when his knee felt weak and gave out, causing him to fall. He notes that the osteoarthritis in his knee often makes his leg go weak when walking too much, causing him to lose his balance and fall. Patient does endorse head contusion, but denies any LOC. Patient is asymptomatic while in the ED. The patient denies chest pain, shortness of breath, headache and dizziness. Denies fever, chills, nausea, vomit, diarrhea and constipation. Denies dysuria, frequency, urgency and hematuria. Allergies: NKA Past surgical history: Abdominal surgery, appendectomy, lumbar spinal fusion Social history: None reported PCP: Dr. Antony Marks 08/12/18 20:17 - Physicial Exam PE: GENERAL: The patient is in no acute distress. HEAD: +Left forehead 1 cm superficial laceration with dried blood, but no active bleeding. EYES: PERRLA, EOMI, sclera anicteric, conjunctiva clear. ENT: Ears normal, nares patent, oropharynx clear without exudates. Moist mucous membranes. NECK: Normal range of motion, supple without lymphadenopathy, JVD, or masses. LUNGS: Breath sounds equal, clear to auscultation bilaterally. No wheezes, and no crackles. HEART:Regular rate and rhythm, normal S1 and S2 without murmur, rub or gallop. ABDOMEN: Soft, nontender, normoactive bowel sounds. No guarding, no rebound. No masses palpable. EXTREMITIES: Normal range of motion, no edema. No clubbing or cyanosis. No erythema, or tenderness. NEUROLOGICAL: Cranial nerves II through XII grossly intact. Normal speech. No focal neurological deficits. MUSCULOSKELETAL: Back non-tender to palpation, no CVA tenderness SKIN: Warm, Dry, normal turgor, no rashes or lesions noted. 08/12/18 19:13 - Medical Decision Making Head CT without contrast Impression: No evidence of a depressed skull fracture nor intracranial bleed. Mild atrophy with minimal small vessel periventricular ischemic changes. Reported by: Jairo Lyles MD. 08/12/18 18:[address] without contrast Impression: No acute fracture or dislocation of the cervical spine evident. Straightening to the normal lordotic curvature may reflect muscular spasm/pain/patient positioning. Multilevel degenerative disc disease cervical spine; most marked at C5-6 and C6- 7 levels. Neural foraminal and spinal canal stenosis at the levels described above. Multilevel bilateral facet arthropathy. Reported by: Jairo Lyles MD 08/12/2018 19:04 Documentation prepared by AROLDO Hayes, acting as medical care manager for Veronica Damon MD. 08/12/18 19:36 <Kely Graham - Last Filed: 08/12/18 20:17>
[2018-08-12 18:57] LABS: BASO % 0.2 % (0-2.0); EOS % 1.7 % (0-4.5); HEMATOCRIT 38.4 % (35.4-49); LYMPH % 16.4 % (8-40); MCHC 33.9 g/dl (32.0-35.9); MEAN CELL VOLUME 91.7 fl (80-96); MEAN PLT VOLUME 7.5 fl (7.5-11.1); MONO % 6.9 % (3.8-10.2); NEUT % 74.8 % (42.8-82.8); PLATELET COUNT 285 K/MM3 (134-434); RBC 4.18 M/mm3 (4.00-5.60); RDW 14.1 % (11.9-15.9); WHITE BLOOD COUNT 7.9 K/mm3 (4.0-10.0)
[2018-08-12 19:23] LABS: ALBUMIN 3.5 g/dl (3.4-5.0); ALK PHOS 161 U/L (45-117); ANION GAP 9 MMOL/L (8-16); BILIRUBIN,TOTAL 0.1 mg/dL (0.2-1); BLOOD UREA NITROGEN 17 mg/dL (7-18); CALCIUM 8.3 mg/dL (8.5-10.1); CHLORIDE 106 mmol/L (98-107); CO2 28 mmol/L (21-32); CREATININE 0.8 mg/dL (0.55-1.3); GLUCOSE,RANDOM 118 mg/dL (74-106); POTASSIUM 3.9 mmol/L (3.5-5.1); SGOT/AST 24 U/L (15-37); SGPT/ALT 25 U/L (13-61); SODIUM 142 mmol/L (136-145); TOT PROT 6.4 g/dl (6.4-8.2)
--- NOTE | 2018-08-13 18:03 | EKG ---
Test Reason : Blood Pressure : / mmHG Vent. Rate : 072 BPM Atrial Rate : 072 BPM P-R Int : 170 ms QRS Dur : 072 ms QT Int : 378 ms P-R-T Axes : 042 013 036 degrees QTc Int : 413 ms NORMAL SINUS RHYTHM NORMAL ECG WHEN COMPARED WITH ECG OF 16-JUN-2018 14:38, NO SIGNIFICANT CHANGE WAS FOUND Confirmed by STORMY BONILLA MD ([id number]) on 08/13/2018 6:03:25 PM Referred By: Confirmed By:STORMY BONILLA MD
== END 2018-08-12 20:23 | disposition home or self-care (01) ==
LOC: JER 16:53
PROC: 3E0234Z Introduction of Serum, Toxoid and Vaccine into Muscle, Percutaneous Approach (ICD-10-PCS; principal; 2018-08-12)
DX: S01.81XA Laceration without foreign body of other part of head, initial encounter (principal); W18.39XA Other fall on same level, initial encounter; Y93.89 Activity, other specified; Y92.89 Other specified places as the place of occurrence of the external cause; Y99.8 Other external cause status; I10 Essential (primary) hypertension; E11.9 Type 2 diabetes mellitus without complications; E78.00 Pure hypercholesterolemia, unspecified; F41.9 Anxiety disorder, unspecified; Z87.891 Personal history of nicotine dependence; M17.0 Bilateral primary osteoarthritis of knee; M50.322 Other cervical disc degeneration at C5-C6 level
CPT/HCPCS: 36415; 70450-TC; 72125-TC; 80053; 84484; 85025; 90471; 90715; 93005; 93010; 99283-25

== ENCOUNTER 2018-09-24 12:06 | Emergency (ER) | payer OTHER ==
[2018-09-24 12:29] VITALS: TEMP 97.9; BMI 29.5
[2018-09-24] MEDS ORDERED: SODIUM CHLORIDE 500 ML IV STA (12:47)
--- NOTE | 2018-09-24 13:04 | PDOC ---
History of Present Illness - General Chief Complaint: Depression Stated Complaint: WEAKNESS Time Seen by Provider: 09/24/18 12:34 History Source: Patient Exam Limitations: No Limitations - History of Present Illness Initial Comments: 09/24/18 12:59 Patient is an 88M with history of DM, HTN, HLD and anxiety here today stating that he's been depressed for the past several years, worsening over the past few days. Patient states that he is presenting to the ED today because he was unable to get out of bed. Patient endorses subjective fevers and chills. Denies headache, cough, shortness of breath and chest pain. Endorses a suprapubic discomfort, denies other abdominal pain. Denies leg swelling. Took 0.5 of xanax , states the was unable to sleep. Denies dysuria. Patient states that he feels depressed. Endorses thinking about what it would be like to , denies suicidal plans, actions or feelings that he wants to . Endorses decreased PO intake and decreased activity. Endorses weight loss. Denies prior psych hospitalization. Endorses treatment for "nervous breakdowns" by various psychiatrists over a period of decades. Past History - Past Medical History Allergies/Adverse Reactions: Allergies Allergy/AdvReac Type Severity Reaction Status Date / Time No Known Allergies Allergy Verified 06/16/18 14:18 Home Medications: Ambulatory Orders Aspirin [ASA -] 81 mg PO DAILY 03/13/16 Paroxetine HCl 25 mg PO DAILY 03/13/16 Lisinopril [Zestril] 2.5 mg PO DAILY 12/19/16 Alprazolam [Xanax] 0.75 mg PO HS MDD 2 08/12/18 Gabapentin [Neurontin -] 300 mg PO HS 09/24/18 Levocetirizine Dihydrochloride [Xyzal] 5 mg PO HS 09/24/18 Mirtazapine 7.5 mg PO HS 09/24/18 traZODone HCL [Trazodone HCl] 150 mg PO HS 09/24/18 Anemia: No Asthma: No Cancer: No Cardiac Disorders: No CVA: No COPD: No Diabetes: Yes HTN: Yes Hypercholesterolemia: Yes Psychiatric Problems: Yes (ANXIETY.) - Surgical History Abdominal Surgery: Yes Appendectomy: Yes Neurologic Surgery: Yes (spinal fusion lumbar) - Immunization History Immunization Up to Date: No - Suicide/Smoking/Psychosocial Hx Smoking Status: No Smoking History: Former smoker Have you smoked in the past 12 months: No Number of Cigarettes Smoked Daily: 0 If you are a former smoker, when did you quit?: 50 years ago Information on smoking cessation initiated: No Hx Alcohol Use: No Drug/Substance Use Hx: No Substance Use Type: Alcohol Hx Substance Use Treatment: No Review of Systems - Review of Systems Able to Perform ROS?: Yes Comments:: 09/24/18 13:04 GENERAL/CONSTITUTIONAL: No fever or chills. + weakness. HEAD, EYES, EARS, NOSE AND THROAT: No change in vision. No sore throat. CARDIOVASCULAR: No chest pain or shortness of breath RESPIRATORY: No cough, wheezing, or hemoptysis. GASTROINTESTINAL: No nausea, vomiting, diarrhea or constipation. GENITOURINARY: No dysuria, frequency, or change in urination. MUSCULOSKELETAL: No joint or muscle swelling or pain. No neck or back pain. SKIN: No rash NEUROLOGIC: No headache, vertigo, loss of consciousness, or change in strength/ sensation. HEMATOLOGIC/LYMPHATIC: No anemia, easy bleeding, or history of blood clots. ALLERGIC/IMMUNOLOGIC: No hives or skin allergy. *Physical Exam - Vital Signs Last Vital Signs Temp Pulse Resp BP Pulse Ox 97.9 F 54 L 18 130/88 100 09/24/18 12:12 09/24/18 12:12 09/24/18 12:12 09/24/18 12:12 09/24/18 12:12 - Physical Exam Comments: 09/24/18 13:04 GENERAL: Awake, alert, and fully oriented, in no acute distress, smells of urine PSYCH: Denies SI/HI, endorses thoughts about dying, describes mood as "depressed ", affect congruent, slow speech HEAD: No signs of trauma, normocephalic, atraumatic EYES: PERRLA, EOMI, sclera anicteric, conjunctiva clear ENT: Auricles normal inspection, hearing grossly normal, nares patent, oropharynx clear without exudates. Moist mucosa NECK: Normal ROM, supple, no lymphadenopathy, JVD, or masses LUNGS: No distress, speaks full sentences, clear to auscultation bilaterally HEART: Regular rate and rhythm, normal S1 and S2, no murmurs, rubs or gallops, peripheral pulses normal and equal bilaterally. ABDOMEN: Soft, nontender, normoactive bowel sounds. No guarding, no rebound. No masses EXTREMITIES: Normal inspection, Normal range of motion, no edema. No clubbing or cyanosis. NEUROLOGICAL: Cranial nerves II through XII grossly intact. Normal speech, no focal sensorimotor deficits SKIN: Warm, Dry, normal turgor, no rashes or lesions noted. ED Treatment Course - LABORATORY CBC & Chemistry Diagram: 09/24/18 12:57 09/24/18 12:57 - RADIOLOGY Radiology Studies Ordered: Category Date Time Status HEAD CT WITHOUT CONTRAST [CT] Stat CT Scan 09/24/18 12:48 Ordered CHEST X-RAY PORTABLE* [RAD] Stat Radiology 09/24/18 12:48 Ordered Medical Decision Making - Medical Decision Making 09/24/18 13:05 Patient is 88M with history of DM, HTN, HLD, anxiety here today with weakness. Vitals stable. EKG shows sinus bradycardia with rate of 55. No st elevations/depressions. Normal axis. Normal intervals. No significant t wave abnormalities. DDx includes, but is not limited to: uti, depression, dehydration, takasubo. Will do broad workup including cbc, cmp, trop, bnp, pt/inr, cxr, head ct. Psych paged, will see. Suspect medical and psychiatric cause. 09/24/18 13:20 CXR clear. 09/24/18 15:46 CBC normal CMP reassuring CT normal Trop neg, BNP normal Pending psych evaluation, from medical standpoint, patient is cleared. 09/24/18 19:07 Patient walking and eating. Asking to go home. 09/24/18 19:12 Cleared by psych. *DC/Admit/Observation/Transfer Diagnosis at time of Disposition: Weakness - Discharge Dispostion Disposition: HOME Condition at time of disposition: Good Decision to Admit order: No - Referrals - Patient Instructions Printed Discharge Instructions: DI for Muscle Weakness Additional Instructions: Please call Dr Marks tomorrow for further follow up. Please return if you have any new, worsening or concerning symptoms, especially increasing pain, fever and vomiting. - Post Discharge Activity Forms/Work/School Notes: My Personal Safety Plan
--- NOTE | 2018-09-24 13:13 | PDOC ---
Documentation entered by Sari Estrada SCRIBE, acting as scribe for Renate Guo MD. Renate Guo MD: This documentation has been prepared by the Sean matta Daisy, SCRIBE, under my direction and personally reviewed by me in its entirety. I confirm that the documentation accurately reflects all work, treatment, procedures, and medical decision making performed by me. Attending Attestation - Resident Resident Name: Dhaval Cary - ED Attending Attestation I have performed the following: I have examined & evaluated the patient, The case was reviewed & discussed with the resident, I agree w/resident's findings & plan, Exceptions are as noted - HPI HPI: 09/24/18 12:57 The patient is an 88 year old male with a significant PMH of right knee osteoarthritis, anxiety, DM, HTN, and HLD, who presents to the emergency department with generalized weakness today. He states he has been feeling depressed in general since his . He took 0.25mg of Xanax last night with minimal relief. He also reports having difficulty falling asleep last night. Denies any homicidal or suicidal ideation. The patient denies chest pain, shortness of breath, headache and dizziness. Denies fever, chills, nausea, vomit, diarrhea and constipation. Denies dysuria, frequency, urgency and hematuria. Allergies: NKA Past surgical history: Abdominal surgery, appendectomy, lumbar spinal fusion Social history: None reported PCP: Dr. Antony Marks - Physicial Exam PE: GENERAL: Awake, alert, and fully oriented, in no acute distress. Slightly unkempt HEAD: No signs of trauma EYES: PERRLA, EOMI, sclera anicteric, conjunctiva clear ENT: Auricles normal inspection, hearing grossly normal, nares patent, oropharynx clear without exudates. Dry mucosa NECK: Normal ROM, supple, no lymphadenopathy, JVD, or masses LUNGS: Breath sounds equal, clear to auscultation bilaterally. No wheezes, and no crackles HEART: Regular rate and rhythm, normal S1 and S2, no murmurs, rubs or gallops ABDOMEN: Soft, nontender, normoactive bowel sounds. No guarding, no rebound. No masses EXTREMITIES: Normal range of motion, no edema. No clubbing or cyanosis. No cords, erythema, or tenderness NEUROLOGICAL: Cranial nerves II through XII grossly intact. Normal speech. Motor and sensation intact SKIN: Warm, Dry, normal turgor, no rashes or lesions noted. - Medical Decision Making Pt with depressed affect, unkempt. Appears depressed, will d/w psychiatry cotton presser. Will obtain labs including UA to r/o infection.
[2018-09-24 13:31] LABS: BASO % 0.3 % (0-2.0); EOS % 4.2 % (0-4.5); HEMATOCRIT 41.8 % (35.4-49); HEMOGLOBIN 13.8 GM/dL (11.7-16.9); MCH 30.2 pg (25.7-33.7); MCHC 33.1 g/dl (32.0-35.9); MEAN CELL VOLUME 91.5 fl (80-96); MEAN PLT VOLUME 7.8 fl (7.5-11.1); MONO % 8.7 % (3.8-10.2); NEUT % 58.8 % (42.8-82.8); PLATELET COUNT 287 K/MM3 (134-434); RBC 4.57 M/mm3 (4.00-5.60); RDW 13.6 % (11.9-15.9); WHITE BLOOD COUNT 4.9 K/mm3 (4.0-10.0)
[2018-09-24 13:51] LABS: ALBUMIN 3.7 g/dl (3.4-5.0); ALK PHOS 137 U/L (45-117); ANION GAP 7 MMOL/L (8-16); BILIRUBIN,TOTAL 0.4 mg/dL (0.2-1); BLOOD UREA NITROGEN 10 mg/dL (7-18); CALCIUM 8.7 mg/dL (8.5-10.1); CHLORIDE 104 mmol/L (98-107); CO2 30 mmol/L (21-32); CREATININE 0.7 mg/dL (0.55-1.3); GLUCOSE,RANDOM 95 mg/dL (74-106); INR 1.08 (0.83-1.09); MAGNESIUM 2.2 mg/dL (1.8-2.4); N-TERMINAL BNP 53.7 pg/ml (5-450); POTASSIUM 4.1 mmol/L (3.5-5.1); PROTHROMBIN TIME (PATIENT) 12.7 SEC (9.7-13.0); SGOT/AST 21 U/L (15-37); SGPT/ALT 24 U/L (13-61); SODIUM 141 mmol/L (136-145); TOT PROT 6.6 g/dl (6.4-8.2)
[2018-09-24 14:16] LABS: URINE APPEARANCE CLEAR; URINE BILIRUBIN NEGATIVE (NEGATIVE); URINE COLOR YELLOW; URINE GLUCOSE (UA) NEGATIVE (NEGATIVE); URINE KETONE NEGATIVE (NEGATIVE); URINE LEUK ESTERASE NEGATIVE (NEGATIVE); URINE NITRITE NEGATIVE (NEGATIVE); URINE PROTEIN NEGATIVE (NEGATIVE)
[2018-09-24 18:19] VITALS: BP 119/62; PULSE 70
--- NOTE | 2018-09-24 19:35 | PN ---
Mental Health Exam - Mental Status Exam Alert and Oriented to: Time, Place, Person Cognitive Function: Grossly Intact Patient Appearance: Well Groomed Mood: Anxious, Apprehensive, Hopeful Affect: Mood Congruent Patient Behavior: Talkative, Appropriate, Cooperative Speech Pattern: Clear Voice Loudness: Normal Thought Process: Intact Thought Disorder: Not Present Hallucinations: None Suicidal Ideation: None Homicidal Ideation: None Insight/Judgement: Good Sleep: Poorly (takes extra xanax when remeron is not helping him. 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 he is bright affect, alert and orientated. endorsed some depression, lonliness. He is taking paxil 25mg, remeron 7.5mg and xanax 0.5 mg as needed (attempting to taper with cabrera NP ). He is suffering grief as many of siblings of varous cancers, living alone, finding the winter long, not meeting others. Feels "i may have cancer too ". Decreased sleep, crying spells, not fully adherent to meds and taking extra xanx as he feels unease. educated about benzodiazepine use, he nodded and aware of the dangers of off label use. denies alchol. exercised daily at home. started on xanax in 1998 after . Report to MD attending, will follow in community this week.
--- NOTE | 2018-09-25 11:04 | EKG ---
Test Reason : Blood Pressure : / mmHG Vent. Rate : 055 BPM Atrial Rate : 055 BPM P-R Int : 148 ms QRS Dur : 072 ms QT Int : 418 ms P-R-T Axes : 037 008 054 degrees QTc Int : 399 ms SINUS BRADYCARDIA WITH PREMATURE ATRIAL COMPLEXES OTHERWISE NORMAL ECG WHEN COMPARED WITH ECG OF 12-AUG-2018 18:38, PREMATURE ATRIAL COMPLEXES ARE NOW PRESENT Confirmed by KENDELL DUMONT MD ([id number]) on 09/25/2018 11:04:15 AM Referred By: Confirmed By:KENDELL DUMONT MD
== END 2018-09-24 19:30 | disposition home or self-care (01) ==
LOC: JER 12:06
PROC: 3E0337Z Introduction of Electrolytic and Water Balance Substance into Peripheral Vein, Percutaneous Approach (ICD-10-PCS; principal; 2018-09-24)
DX: R53.1 Weakness (principal); I10 Essential (primary) hypertension; E78.5 Hyperlipidemia, unspecified; E11.9 Type 2 diabetes mellitus without complications; F32.9 Major depressive disorder, single episode, unspecified; F41.9 Anxiety disorder, unspecified
CPT/HCPCS: 36415; 70450-TC; 71045-TC-FY; 80053; 81003; 82550; 82553; 83735; 83880; 84484; 85025; 85610; 93005; 93010; 96360; 99282-25

== ENCOUNTER 2018-10-04 16:18 | Inpatient (IN) | payer OTHER ==
--- NOTE | 2018-10-04 16:33 | PDOC ---
Rapid Medical Evaluation Chief Complaint: Injury Time Seen by Provider: 10/04/18 16:28 Medical Evaluation: Allergies Allergy/AdvReac Type Severity Reaction Status Date / Time No Known Allergies Allergy Verified 10/03/18 14:59 10/04/18 16:28 I have performed a brief in-person evaluation of this patient. The patient presents with a chief complaint of: weakness- inability to walk worsening s/p fall 2 weeks ago Pertinent physical exam findings: Tenderness to right iliac crest I have ordered the following: ice, labs, urine The patient will proceed to the ED for further evaluation. 10/04/18 16:33 Discharge Disposition - Diagnosis Weakness - Referrals - Patient Instructions - Post Discharge Activity
[2018-10-04 17:58] LABS: BASO % 0.3 % (0-2.0); EOS % 2.9 % (0-4.5); HEMATOCRIT 39.9 % (35.4-49); LYMPH % 24.5 % (8-40); MCH 30.5 pg (25.7-33.7); MCHC 32.5 g/dl (32.0-35.9); MEAN CELL VOLUME 93.9 fl (80-96); MEAN PLT VOLUME 7.6 fl (7.5-11.1); MONO % 10.2 % (3.8-10.2); NEUT % 62.1 % (42.8-82.8); PLATELET COUNT 299 K/MM3 (134-434); RBC 4.25 M/mm3 (4.00-5.60); RDW 14.1 % (11.9-15.9); WHITE BLOOD COUNT 6.5 K/mm3 (4.0-10.0)
--- NOTE | 2018-10-04 18:01 | PDOC ---
History of Present Illness - General Chief Complaint: Injury Stated Complaint: SENT BY DOCTOR Time Seen by Provider: 10/04/18 16:28 - History of Present Illness Initial Comments: 10/04/18 17:44 Mr. Williamson is an 88 yo male w/ pmh of DM, HTN, HLD, Anxiety, Depression, and BPH who presents for evaluation of exacerbation of R leg pain and weakness over the past 2 weeks. Mr. Williamson has been evaluated several times recently (08/12, 09/24, ) for falls and weakness related to his leg pain. Patient has had Head and C- spine CT imaging with no emergent findings however falls, pain, and weakness have continued. Patient reports pain starts from his R gluteal area and shoots all the way to his large toe. Denies any anesthesia, loss of bowel or bladder. Patient was thought to be depressed upon evaluation by prior teams. The patient denies chest pain, shortness of breath, headache and dizziness. Denies fever, chills, nausea, vomit, diarrhea and constipation. Denies dysuria, frequency, urgency and hematuria. Past History - Past Medical History Allergies/Adverse Reactions: Allergies Allergy/AdvReac Type Severity Reaction Status Date / Time No Known Allergies Allergy Verified 10/03/18 14:59 Home Medications: Ambulatory Orders Aspirin [ASA -] 81 mg PO DAILY 03/13/16 Paroxetine HCl 37.5 mg PO DAILY 03/13/16 Lisinopril [Zestril] 2.5 mg PO DAILY 12/19/16 Alprazolam [Xanax] 0.75 mg PO HS MDD 2 08/12/18 Gabapentin [Neurontin -] 300 mg PO HS 09/24/18 Levocetirizine Dihydrochloride [Xyzal] 5 mg PO HS 09/24/18 Mirtazapine 7.5 mg PO HS 09/24/18 traZODone HCL [Trazodone HCl] 150 mg PO HS 09/24/18 Anemia: No Asthma: No Cancer: No Cardiac Disorders: No CVA: No COPD: No Diabetes: Yes HTN: Yes Hypercholesterolemia: Yes Psychiatric Problems: Yes (ANXIETY.) - Surgical History Abdominal Surgery: Yes Appendectomy: Yes Neurologic Surgery: Yes (spinal fusion lumbar) - Immunization History Immunization Up to Date: No - Suicide/Smoking/Psychosocial Hx Smoking Status: No Smoking History: Never smoked Have you smoked in the past 12 months: No Number of Cigarettes Smoked Daily: 0 If you are a former smoker, when did you quit?: 50 years ago Information on smoking cessation initiated: No Hx Alcohol Use: No Drug/Substance Use Hx: No Substance Use Type: Alcohol Hx Substance Use Treatment: No Review of Systems - Review of Systems Comments:: 10/04/18 18:01 GENERAL/CONSTITUTIONAL: No fever or chills. No weakness. HEAD, EYES, EARS, NOSE AND THROAT: No change in vision. No ear pain or discharge. No sore throat. CARDIOVASCULAR: No chest pain or shortness of breath RESPIRATORY: No cough, wheezing, or hemoptysis. GASTROINTESTINAL: No nausea, vomiting, diarrhea or constipation. GENITOURINARY: No dysuria, frequency, or change in urination. MUSCULOSKELETAL: +R leg pain / weakness as described. SKIN: No rash NEUROLOGIC: No headache, vertigo, loss of consciousness, or change in strength/ sensation. ENDOCRINE: No increased thirst. No abnormal weight change HEMATOLOGIC/LYMPHATIC: No anemia, easy bleeding, or history of blood clots. ALLERGIC/IMMUNOLOGIC: No hives or skin allergy. *Physical Exam - Vital Signs Last Vital Signs Temp Pulse Resp BP Pulse Ox 98.4 F 69 16 115/62 97 10/04/18 16:30 10/04/18 16:30 10/04/18 16:30 10/04/18 16:30 10/04/18 16:30 - Physical Exam Comments: 10/04/18 18:01 GENERAL: Awake, alert, and fully oriented, in no acute distress HEAD: No signs of trauma, normocephalic, atraumatic EYES: PERRLA, EOMI, sclera anicteric, conjunctiva clear ENT: Auricles normal inspection, hearing grossly normal, nares patent, oropharynx clear without exudates. Moist mucosa NECK: Normal ROM, supple, no lymphadenopathy, JVD, or masses LUNGS: No distress, speaks full sentences, clear to auscultation bilaterally HEART: Regular rate and rhythm, normal S1 and S2, no murmurs, rubs or gallops, peripheral pulses normal and equal bilaterally. ABDOMEN: Soft, nontender, normoactive bowel sounds. No guarding, no rebound. No masses EXTREMITIES: +TTP of R gluteal muscle elucidating leg pain. Otherwise normal inspection, normal range of motion, no edema. No clubbing or cyanosis. NEUROLOGICAL: Cranial nerves II through XII grossly intact. Normal speech, no focal sensorimotor deficits SKIN: Warm, Dry, normal turgor, no rashes or lesions noted. ED Treatment Course - LABORATORY CBC & Chemistry Diagram: 10/04/18 17:41 10/04/18 17:41 Medical Decision Making - Medical Decision Making 10/04/18 19:51 Mr. Williamson is an 88 yo male w/ pmh as described who presents for evaluation of chronic leg pain and weakness leading to multiple recent falls. Patient evaluated with labs as below as well as lumbar CT for evaluation of etiology of pain. CT significant for prominent L3-L4 and L4-L5 canal stenosis with advanced multi-level disc and facet joint changes. Patient will be admitted for Neurology consult and further evaluation of chronic pain. Laboratory Results - last 24 hr 10/04/18 10/04/18 17:41 17:41 WBC 6.5 RBC 4.25 Hgb 13.0 Hct 39.9 MCV 93.9 MCH 30.5 MCHC 32.5 RDW 14.1 Plt Count 299 MPV 7.6 Absolute Neuts (auto) 4.0 Neutrophils % 62.1 Lymphocytes % 24.5 Monocytes % 10.2 Eosinophils % 2.9 Basophils % 0.3 Nucleated RBC % 0 Sodium 140 Potassium 4.9 Chloride 106 Carbon Dioxide 28 Anion Gap 6 L BUN 20 H Creatinine 0.7 Est GFR (CKD-EPI)AfAm 98.34 Est GFR (CKD-EPI)NonAf 84.85 Random Glucose 95 Calcium 8.8 Total Bilirubin 0.3 AST 23 ALT 23 Alkaline Phosphatase 133 H Total Protein 6.3 L Albumin 3.6 *DC/Admit/Observation/Transfer Diagnosis at time of Disposition: Weakness, Frequent falls - Discharge Dispostion Condition at time of disposition: Stable Decision to Admit order: Yes - Referrals Referrals: Antony Marks MD [Primary Care Provider] - - Patient Instructions - Post Discharge Activity
[2018-10-04 18:28] LABS: ALBUMIN 3.6 g/dl (3.4-5.0); BILIRUBIN,TOTAL 0.3 mg/dL (0.2-1); CALCIUM 8.8 mg/dL (8.5-10.1); CREATININE 0.7 mg/dL (0.55-1.3); POTASSIUM 4.9 mmol/L (3.5-5.1); TOT PROT 6.3 g/dl (6.4-8.2)
--- NOTE | 2018-10-04 19:29 | PDOC ---
Documentation entered by Kely Graham SCRIBE, acting as scribe for Jeana Moore DO. Jeana Moore, DO: This documentation has been prepared by the Santos matta Adrianna, SCRIBE, under my direction and personally reviewed by me in its entirety. I confirm that the documentation accurately reflects all work, treatment, procedures, and medical decision making performed by me. Attending Attestation - Resident Resident Name: Ray Valles - HPI HPI: The patient is an 88 year old male, with a significant PMH of DM, HTN, HLD, anxiety,who presents to the emergency department today for RLE pain for 2 weeks. Patient reports pain that is most prominent in the right groin, and radiates down his RLE to his right foot and toes. He endorses associated right- sided low back pain, and numbness/tingling down the RLE. Patient reports multiple falls recently secondary to the combination of RLE pain and feeling lightheaded/dizzy. Patient has been seen in the ED multiple times for this issue (3rd time this month), and head CT and C-spine CT were negative for any acute findings.. The patient denies chest pain, shortness of breath, and headache. Denies fever, chills, nausea, vomit, and diarrhea. Denies urinary incontinence, dysuria, frequency, urgency and hematuria. Allergies: NKA Past surgical history: Lumbar spinal fusion, left total hip replacement. Social history: No reported PCP: Dr. Marks 10/04/18 19:17 - Physicial Exam PE: GENERAL: Awake, alert, and fully oriented, in no acute distress HEAD: No signs of trauma EYES: PERRLA, EOMI, sclera anicteric, conjunctiva clear ENT: Auricles normal inspection, hearing grossly normal, nares patent, oropharynx clear without exudates. Moist mucosa NECK: Normal ROM, supple, no lymphadenopathy, JVD, or masses LUNGS: Breath sounds equal, clear to auscultation bilaterally. No wheezes, and no crackles HEART: Regular rate and rhythm, normal S1 and S2, no murmurs, rubs or gallops ABDOMEN: Soft, nontender, normoactive bowel sounds. No guarding, no rebound. No masses BACK: +Reproducible pain with palpation over the right SI joint and right sacrum. EXTREMITIES: +Pain down right leg. +Sensation intact, little diminished on right versus left. Full range of motion, no edema. Pedal pulses intact.No clubbing or cyanosis. No cords, erythema. NEUROLOGICAL: Cranial nerves II through XII grossly intact. Normal speech, normal gait SKIN: Warm, Dry, normal turgor, no rashes or lesions noted. 10/04/18 19:17 - Medical Decision Making 10/04/18 19:24 I, Dr. Jeana Moore, DO, attest that this document has been prepared under my direction and personally reviewed by me in its entirety. I further attest, that it accurately reflects all work, treatment, procedures and medical decision -making performed by me. 10/04/18 19:24 a/p: 88yo male with hx of lumbar sx in 1964 with increasing falls, lbp and R leg weakness/pain down the R leg -pt is a poor historian -pt has fallen multiple times in the last few weeks -states pain in his back and numbness down the leg was there prior to falls, but worsened since the fall -will send labs, ct imaging of back -hx of fusion in lumbar spine -pt sent by Alex Oconnor for admission for freq falls, worsening lbp, leg weakness -pt was seen in the ed yesterday and had a head ct that was negative for acute findings -will monitor and reassess 10/04/18 19:47 ct shows degenerative changes in lumbar spine with some stenosis microblog sent to chris, resident discussed the case with CHRIS - Randa Gonzalez NP who accepts pt to service 10/04/18 19:49 family updated, pt given a food tray Heart Score/ECG Review - ECG Intrepretation Comment:: 10/04/18 19:49 sinus at 68, nl axis, nl interval, no acute st/t wave findings
[2018-10-04 19:50] LABS: EPI CELLS 0.7 /HPF (0-5/HPF); HYALINE CASTS 2 /lpf (0-8); PH,URINE 5.5 (5.0-8.0); URINE APPEARANCE CLEAR; URINE BACTERIA 7.6 /hpf (NEGATIVE); URINE BILIRUBIN NEGATIVE (NEGATIVE); URINE COLOR YELLOW; URINE GLUCOSE (UA) NEGATIVE (NEGATIVE); URINE KETONE NEGATIVE (NEGATIVE); URINE LEUK ESTERASE 1+ (NEGATIVE); URINE NITRITE NEGATIVE (NEGATIVE); URINE PROTEIN NEGATIVE (NEGATIVE); URINE RBC 4 /hpf (0-4); URINE WBC 7 /hpf (0-5)
[2018-10-04] MEDS ORDERED: ALPRAZolam 0.25 MG TABLET PO PRN (20:35)
[2018-10-04] MEDS ORDERED: DOCUSATE SODIUM 100 MG CAPSULE (FP) PO PRN (20:36)
[2018-10-04] MEDS ORDERED: ACETAMINOPHEN 325 MG TABLET (FP) PO PRN (20:36)
[2018-10-04] MEDS: HEPARIN NA (PORCINE) 5,000 UNITS/ML 1ML VIAL SQ SCH (22:00)
[2018-10-04] MEDS: GABAPENTIN 300 MG CAPSULE (FP) PO SCH (22:00)
[2018-10-04] MEDS ORDERED: traZODone HCL 50 MG TABLET (FP) PO SCH (22:00)
[2018-10-04] MEDS: ALPRAZolam 0.25 MG TABLET PO PRN (22:09)
--- NOTE | 2018-10-04 22:21 | HP ---
Admitting History and Physical - Primary Care Physician PCP: Antony Marks - Admission Chief Complaint: LBP with radiation to right lower extremity History of Present Illness: 88 year old M with h/o diet-controlled DM, HTN, HLD, right knee OA, chronic back pain and anxiety who presents to the ED today reporting decreased mobility due to severe LBP. Pt has long history of lower back pain with lumbar spine fusion surgery 2003. Mr. Williamson reports pain with radiculopathy has been present over the last three months but has been progressively worse in nature after multiple falls. He lives alone and as per daughter he has no home care services and she has noted a decline in functioning as he no longer cooks, cleans or does laundry. Patient had a fall in jun 2018 after he experienced an episode of dizziness. PT was evaluated in the ED, Head CT negative and he was discharged home. Once again in August, fell after his right knee "gave out", he sustained a head injury but did not lose consciousness. His head CT was negative for bleed and CT C-spine Multilevel degenerative disc disease cervical spine; most marked at C5-6 and C6-7 levels. On 10/03; pt presented to [facility] for evaluation after being found in his bed at home by a neighbor and was unwilling to get out. Pt states his mood has been depressed for the past several years and has become worse in the last several days to weeks. Pt was discharged home with outpt follow up within 24hrs. His daughter stayed overnight and noted that her father had difficulty ambulating due to persistent LBP with radiation down RLE. PT describes pain as shooting pain, which starts in right glutteal region and radiates to great toe. He denies bowel/bladder incontinence. Pt states " my sciatica is acting up" . CT L-spine demonstrates degenerative changes. Pt admitted for management. History Source: Patient, Family Member (daughter) Limitations to Obtaining History: No Limitations - Past Medical History Cardiovascular: Yes: HTN, Hyperlipdemia Musculoskeletal: Yes: Chronic low back pain Endocrine: Yes: Diabetes Mellitus - Past Surgical History Additional Past Surgical History: Left hip replacement appendectomy Lumbar spine fusion - Advance Directives Advance Directives: Yes: Living Will (DNI), Health Care Proxy (Daughter: Lizzy Ellison [phone] Ilir (son) [phone]) - Smoking History Smoking history: Never smoked Have you smoked in the past 12 months: No Aproximately how many cigarettes per day: 0 If you are a former smoker, when did you quit?: 1960s - Alcohol/Substance Use Hx Alcohol Use: No History of Substance Use: reports: None - Social History Usual Living Arrangement: Yes: Alone ADL: Family Assistance 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 History of Recent Travel: No Home Medications - Allergies Allergies/Adverse Reactions: Allergies Allergy/AdvReac Type Severity Reaction Status Date / Time No Known Allergies Allergy Verified 10/03/18 14:59 - Home Medications Home Medications: Ambulatory Orders Aspirin [ASA -] 81 mg PO DAILY 03/13/16 Paroxetine HCl 37.5 mg PO DAILY 03/13/16 Lisinopril [Zestril] 2.5 mg PO DAILY 12/19/16 Gabapentin [Neurontin -] 300 mg PO HS 09/24/18 Levocetirizine Dihydrochloride [Xyzal] 5 mg PO HS 09/24/18 Mirtazapine 7.5 mg PO HS 09/24/18 Alprazolam [Xanax] 0.5 mg PO HS MDD 1 tab 10/04/18 Rosuvastatin Calcium [Crestor] 1 tab PO HS 10/04/18 Tamsulosin HCl [Flomax] 0.4 mg PO DAILY 10/04/18 Review of Systems - Review of Systems Constitutional: reports: Lethargy, Loss of Appetite, Weakness Eyes: reports: No Symptoms HENT: reports: Hearing Loss Neck: reports: No Symptoms Cardiovascular: reports: No Symptoms Respiratory: reports: No Symptoms Gastrointestinal: reports: No Symptoms Genitourinary: reports: No Symptoms Breasts: reports: No Symptoms Reported Musculoskeletal: reports: Back Pain, Extremity Pain, Muscle Weakness Integumentary: reports: No Symptoms Neurological: reports: Unsteady Gait, Weakness Endocrine: reports: No Symptoms Hematology/Lymphatic: reports: No Symptoms Psychiatric: reports: Anxiety, Depression Physical Examination Vital Signs: Vital Signs Temperature 98.4 F 10/04/18 16:30 Pulse Rate 69 10/04/18 16:30 Respiratory Rate 16 10/04/18 20:23 Blood Pressure 115/62 10/04/18 16:30 O2 Sat by Pulse Oximetry (%) 97 10/04/18 20:23 Constitutional: Yes: No Distress, Calm Eyes: Yes: Conjunctiva Clear, PERRL HENT: Yes: Atraumatic, Normocephalic, Other (poor dentition) Neck: Yes: Supple Cardiovascular: Yes: Regular Rate and Rhythm Respiratory: Yes: Regular, CTA Bilaterally Gastrointestinal: Yes: Normal Bowel Sounds, Soft ...Rectal Exam: Yes: Deferred Musculoskeletal: Yes: Back Pain, Muscle Weakness (+ right straight leg raise, + point tenderness to R paraspinal processes and right glutteal) Edema: No Peripheral Pulses WNL: Yes Peripheral Pulses: Left Radial: 2+, Right Radial: 2+ Integumentary: Yes: WNL Neurological: Yes: Alert, Oriented, Unsteady Gait, Weakness ...Motor Strength: RLE (3/5) Psychiatric: Yes: Alert, Oriented Labs: CBC, BMP 10/04/18 17:41 10/04/18 17:41 Imaging - Results Cat Scan: Report Reviewed (CT L-spine 10/04/2018 Impression: Advanced multilevel degenerative disc and facet joint changes are seen. Prominent L4-5 and L3-L4 canal stenosis is noted. No evidence of fracture. Incidental note is made of a 1.4cm hemangioma within the right posterolateral aspect of T12 vertebral body. The partial upper abdomen demonstrates evidence of cholelithiasis. Note is also made of a 2cm left adrenal adenoma. Biochemical evaluation is suggested.) Problem List - Problems (1) Degenerative lumbar spinal stenosis Assessment/Plan: APAP PRN pain neurontin 300mg daily neuro and neurosurg consult placed PT evaluation ordered Code(s): M48.061 - SPINAL STENOSIS, LUMBAR REGION WITHOUT NEUROGENIC JEREMY (2) Adenoma of left adrenal gland Assessment/Plan: incidental adenoma will send hormone levels with AM labs Code(s): D35.02 - BENIGN NEOPLASM OF LEFT ADRENAL GLAND (3) Cholelithiasis NOS Assessment/Plan: asymptomatic, no intervention warranted Code(s): K80.20 - CALCULUS OF GALLBLADDER W/O CHOLECYSTITIS W/O OBSTRUCTION (4) Anxiety Assessment/Plan: continue Xanax 0.5mg daily constant reassurance Code(s): F41.9 - ANXIETY DISORDER, UNSPECIFIED (5) BPH (benign prostatic hyperplasia) Assessment/Plan: flomax 0.4mg daily Code(s): N40.0 - BENIGN PROSTATIC HYPERPLASIA WITHOUT LOWER URINRY TRACT SYMP (6) Depression (emotion) Assessment/Plan: continue paxil and remeron Code(s): F32.9 - MAJOR DEPRESSIVE DISORDER, SINGLE EPISODE, UNSPECIFIED Qualifiers: Depression Type: unspecified Qualified Code(s): F32.9 - Major depressive disorder, single episode, unspecified (7) Hypertension Assessment/Plan: lisinopril 2.5mg daily low salt diet Code(s): I10 - ESSENTIAL (PRIMARY) HYPERTENSION (8) Insomnia Assessment/Plan: xanax at bedtime Code(s): G47.00 - INSOMNIA, UNSPECIFIED Qualifiers: Insomnia type: drug-induced Qualified Code(s): F19.982 - Other psychoactive substance use, unspecified with psychoactive substance-induced sleep disorder (9) Prophylactic measure Assessment/Plan: SC heparin TID OOB to chair as tolerated PT evaluation bowel regimen with senna and colace Code(s): Z29.9 - ENCOUNTER FOR PROPHYLACTIC MEASURES, UNSPECIFIED Assessment/Plan Code status: DNI, pt would like resuscitation measures Visit type - Emergency Visit Emergency Visit: Yes ED Registration Date: 10/04/18 Care time: The patient presented to the Emergency Department on the above date and was hospitalized for further evaluation of their emergent condition. - New Patient This patient is new to me today: Yes Date on this admission: 10/04/18 - Critical Care Critical Care patient: No
[2018-10-05] MEDS: HEPARIN NA (PORCINE) 5,000 UNITS/ML 1ML VIAL SQ SCH ×3 (06:16→21:30)
[2018-10-05 07:57] LABS: BASO % 0.3 % (0-2.0); EOS % 5.5 % (0-4.5); HEMATOCRIT 34.4 % (35.4-49); HEMOGLOBIN 11.8 GM/dL (11.7-16.9); LYMPH % 31.2 % (8-40); MCH 31.1 pg (25.7-33.7); MCHC 34.3 g/dl (32.0-35.9); MEAN CELL VOLUME 90.9 fl (80-96); MEAN PLT VOLUME 7.6 fl (7.5-11.1); MONO % 10.9 % (3.8-10.2); NEUT % 52.1 % (42.8-82.8); PLATELET COUNT 300 K/MM3 (134-434); RBC 3.78 M/mm3 (4.00-5.60); RDW 14.1 % (11.9-15.9); WHITE BLOOD COUNT 4.2 K/mm3 (4.0-10.0)
[2018-10-05 08:03] LABS: ALBUMIN 3.1 g/dl (3.4-5.0); BILIRUBIN,TOTAL 0.5 mg/dL (0.2-1); CALCIUM 8.2 mg/dL (8.5-10.1); CREATININE 0.7 mg/dL (0.55-1.3); MAGNESIUM 2.4 mg/dL (1.8-2.4); PHOSPHOROUS 3.7 mg/dL (2.5-4.9); TOT PROT 5.7 g/dl (6.4-8.2)
[2018-10-05] MEDS: TAMSULOSIN HCL 0.4 MG CAP PO SCH (09:55)
[2018-10-05] MEDS: PARoxetine HCL 10 MG TABLET PO SCH (09:55)
[2018-10-05] MEDS: ASPIRIN 81 MG CHEWABLE TABLETS PO SCH (09:55)
[2018-10-05] MEDS ORDERED: LISINOPRIL 5 MG TABLET (FP) PO SCH (10:00)
--- NOTE | 2018-10-05 10:25 | CONSULT ---
Consult - text type - Consultation Consultation Note: NEUROLOGY CONSULT GREATLY APPRECIATED: This 88 yo man lives alone. PMHX includes HTN, HLD, DM, depression, anxiety, BPH. Meds include ASA, paroxetine 37.5 qd, xanax 0.75 qhs, gabapentin 300 qhs, levocetrizine, mirtazapine, trazodone 150mg qhs. Previous surgical hx: L Hip ORIF in 2003 and distant LS surgery in 1960s. Pt presents for recurrent falls and increased difficulty with ambulation, attributed to "shooting pains" from R buttock, down posterior thigh into R big toe. He has been ambulating with cane for past year and a half and is severely limited in distance ambulating due to pain. He previously had ACTIVITIES AIDE 2 weeks ago for cooking, groceries and cleaning home, however it since was discontinued. Review of systems significant for recent depression, which he attributes to the progressive limitation in ambulation. Lumbar CT: advanced multilevel DJD with L3/L4, L4/L5 central canal stenosis. UA WBC= 7. ANDRIY: Cor reg. No bruit. Neck supple. Pos R SLR. Neg Steve's. LS scar. NEURO: Awake, alert. Ox "[facility]" October 04, 2018. TRUMP. Poor reversals. 2/3 recall @ 1 min. + glabella, grasps CNII-CNXII: EOM's full without nystagmus. Full de los santos. No facial. Sl reduced tongue LCARA's. Gag ok. Motor: No drift. Decreased CLARA's B/L. Reflexes normal in arms, but absent R AJ. 4-/5 R DF, 4+/5 R eversion and inversion. Toes downgoing. Coordination: No FTN dystaxia. Sensation: Reduced vibration toes. Romberg - Gait: Antalgic on L leg, flexed, shortened strides. 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
--- NOTE | 2018-10-05 12:36 | PN ---
Progress Note, Physician Chief Complaint: patient seen and examined has right leg pain - Current Medication List Current Medications: Active Medications Acetaminophen (Tylenol -) 650 mg PO Q6H PRN PRN Reason: PAIN LEVEL 4 - 6 Alprazolam (Xanax -) 0.5 mg PO HS PRN PRN Reason: AGITATION Last Admin: 10/04/18 22:09 Dose: 0.5 mg Aspirin (Asa -) 81 mg PO DAILY [facility] Last Admin: 10/05/18 09:55 Dose: 81 mg Docusate Sodium (Colace -) 100 mg PO Q12H PRN PRN Reason: CONSTIPATION Gabapentin (Neurontin -) 300 mg PO HS [facility] Last Admin: 10/04/18 22:00 Dose: 300 mg Heparin Sodium (Porcine) (Heparin -) 5,000 unit SQ TID [facility] Last Admin: 10/05/18 06:16 Dose: 5,000 unit Lisinopril (Prinivil) 2.5 mg PO DAILY [facility] Last Admin: 10/05/18 09:55 Dose: 2.5 mg Mirtazapine (Remeron -) 7.5 mg PO HS [facility] Naproxen (Naprosyn -) 375 mg PO BID [facility] Paroxetine HCl (Paxil -) 30 mg PO DAILY [facility] Last Admin: 10/05/18 09:55 Dose: 30 mg Rosuvastatin Calcium (Crestor -) 5 mg PO HS [facility] Senna (Senna -) 2 tab PO HS PRN PRN Reason: CONSTIPATION Tamsulosin HCl (Flomax -) 0.4 mg PO DAILY@0830 [facility] Last Admin: 10/05/18 09:55 Dose: 0.4 mg Thiamine HCl (Vitamin B1 Injection -) 250 mg IVPB TID [facility] Stop: 10/08/18 13:59 - Objective Vital Signs: Vital Signs Temperature 97.9 F 10/05/18 10:14 Pulse Rate 60 10/05/18 10:14 Respiratory Rate 18 10/05/18 10:14 Blood Pressure 98/51 L 10/05/18 10:14 O2 Sat by Pulse Oximetry (%) 96 10/04/18 22:14 Constitutional: Yes: Calm Cardiovascular: Yes: Regular Rate and Rhythm, S2 Respiratory: Yes: CTA Bilaterally Gastrointestinal: Yes: Normal Bowel Sounds, Soft Edema: No Neurological: Yes: Alert, Oriented Labs: CBC, BMP 10/05/18 06:35 10/05/18 06:35 Problem List - Problems (1) Adenoma of left adrenal gland Assessment/Plan: alosterone and cortisol ordered Code(s): D35.02 - BENIGN NEOPLASM OF LEFT ADRENAL GLAND (2) Degenerative lumbar spinal stenosis Assessment/Plan: MRI of LS spine seen by neurology iv thiamine ordered naproxen BID LEWIS ordered check b12 and tsh Code(s): M48.061 - SPINAL STENOSIS, LUMBAR REGION WITHOUT NEUROGENIC JEREMY (3) BPH (benign prostatic hyperplasia) Assessment/Plan: flomax Code(s): N40.0 - BENIGN PROSTATIC HYPERPLASIA WITHOUT LOWER URINRY TRACT SYMP (4) Anxiety Assessment/Plan: xanax Code(s): F41.9 - ANXIETY DISORDER, UNSPECIFIED
--- NOTE | 2018-10-05 12:53 | EKG ---
Test Reason : Blood Pressure : / mmHG Vent. Rate : 068 BPM Atrial Rate : 068 BPM P-R Int : 154 ms QRS Dur : 068 ms QT Int : 400 ms P-R-T Axes : 056 033 068 degrees QTc Int : 425 ms SINUS RHYTHM WITH PREMATURE ATRIAL COMPLEXES OTHERWISE NORMAL ECG WHEN COMPARED WITH ECG OF 03-OCT-2018 16:22, PREMATURE ATRIAL COMPLEXES ARE NOW PRESENT Confirmed by ELIAS DANIELS, HANNA ([id number]) on 10/05/2018 12:53:30 PM Referred By: Confirmed By:HANNA GRIFFIN MD
[2018-10-05] MEDS ORDERED: PT OWN MED DRAWER 7, Y5N ONE ×2 (13:51→21:21)
[2018-10-05] MEDS: NAPROXEN 375 MG TABLET (FP) PO SCH ×2 (14:30→21:29)
[2018-10-05] MEDS: THIAMINE HCL 200 MG/2 ML VIAL IVPB SCH ×2 (14:31→21:30)
[2018-10-05] MEDS ORDERED: MIRTAZAPINE 15 MG TABLET (FP) PO SCH ×2 (20:00→22:00)
[2018-10-05] MEDS: GABAPENTIN 300 MG CAPSULE (FP) PO SCH (21:30)
[2018-10-05] MEDS: ROSUVASTATIN CA 5 MG TABLET (FP) PO SCH (21:30)
[2018-10-05] MEDS: ALPRAZolam 0.25 MG TABLET PO PRN (21:35)
--- NOTE | 2018-10-05 23:15 | CONSULT ---
Consult - text type - Consultation Consultation Note: NEUROSURGERY CONSULTATION Ilir Williamson is an 88 year old male who has a long history of back pain who presented to the [facility] ER last evening with a chief complaint of progression of his back pain to an extent that he could no longer ambulate. He reports Lumbar fusion in 2003 and a three month history of progressing radiculopathy to his Right foot which has not improved. He reports increasing gait difficulty and a series of falls. This is severely impairing his activities of daily living and results in a poor quality of life. The patient has been to the ER several times recently and has had falls and bumped his head. He describes his Right leg giving out on him resulting in a fall in August 2018. Cervical CT demonstrates multilevel spondylosis with a aniket spinal canal no larger than 7.5 mm at some levels. The spondylosis appears to involve hypertrophic posterior longitudinal ligament as well as bone spurs and disc bulges. The spondylosis is worst at C56 and C67 where there is focal kyphosis. Today the patient describes severe Right gluteal pain which radiates to his great toe on the Right. He describes walking better with a stooped posture and increase in his bilateral leg numbness and pain with ambulation suggesting Neurogenic Claudication. Vibration and jostling slightly increase his pain and the patient has no significant increase with Valsalva's maneuver. CT Lumbar demonstrates facet and ligamentum flavum hypertrophy resulting in moderate to severe stenosis at L34 and severe stenosis at L45. I feel that the patient should be evaluated with Cervical and Lumbar MRI. Although he has advanced age and multiple medical comorbiities, there may be a focal decompression procedure, perhaps using minimally invasive techniques which may afford him some relief. Will review MRI exams and discuss potential options with patient.
[2018-10-06] MEDS: THIAMINE HCL 200 MG/2 ML VIAL IVPB SCH ×3 (05:55→22:41)
[2018-10-06] MEDS: HEPARIN NA (PORCINE) 5,000 UNITS/ML 1ML VIAL SQ SCH ×3 (05:55→22:38)
[2018-10-06 07:49] LABS: BASO % 0.2 % (0-2.0); EOS % 5.5 % (0-4.5); HEMATOCRIT 35.2 % (35.4-49); HEMOGLOBIN 11.6 GM/dL (11.7-16.9); MCH 30.4 pg (25.7-33.7); MCHC 33.1 g/dl (32.0-35.9); MEAN PLT VOLUME 7.5 fl (7.5-11.1); MONO % 9.9 % (3.8-10.2); NEUT % 58.4 % (42.8-82.8); PLATELET COUNT 290 K/MM3 (134-434); RBC 3.83 M/mm3 (4.00-5.60); WHITE BLOOD COUNT 4.6 K/mm3 (4.0-10.0)
[2018-10-06 08:39] LABS: ALBUMIN 3.1 g/dl (3.4-5.0); BILIRUBIN,TOTAL 0.3 mg/dL (0.2-1); CALCIUM 8.2 mg/dL (8.5-10.1); CREATININE 0.7 mg/dL (0.55-1.3); POTASSIUM 4.1 mmol/L (3.5-5.1); TOT PROT 5.3 g/dl (6.4-8.2)
[2018-10-06] MEDS: TAMSULOSIN HCL 0.4 MG CAP PO SCH (08:48)
[2018-10-06] MEDS: PARoxetine HCL 10 MG TABLET PO SCH (09:59)
[2018-10-06] MEDS: ASPIRIN 81 MG CHEWABLE TABLETS PO SCH (09:59)
[2018-10-06] MEDS: NAPROXEN 375 MG TABLET (FP) PO SCH ×2 (10:00→22:37)
--- NOTE | 2018-10-06 11:32 | PN ---
Progress Note, Physician Chief Complaint: pateint seen and examined says he is full code and also says that bc he is not walking his leg pain is better but when he ambulates the leg pain comes right back to get MRI of L and C spine today - Current Medication List Current Medications: Active Medications Acetaminophen (Tylenol -) 650 mg PO Q6H PRN PRN Reason: PAIN LEVEL 4 - 6 Alprazolam (Xanax -) 0.5 mg PO HS PRN PRN Reason: AGITATION Last Admin: 10/05/18 21:35 Dose: 0.5 mg Aspirin (Asa -) 81 mg PO DAILY [facility] Last Admin: 10/06/18 09:59 Dose: 81 mg Docusate Sodium (Colace -) 100 mg PO Q12H PRN PRN Reason: CONSTIPATION Last Admin: 10/06/18 09:59 Dose: 100 mg Gabapentin (Neurontin -) 300 mg PO HS [facility] Last Admin: 10/05/18 21:30 Dose: 300 mg Heparin Sodium (Porcine) (Heparin -) 5,000 unit SQ TID [facility] Last Admin: 10/06/18 05:55 Dose: 5,000 unit Naproxen (Naprosyn -) 375 mg PO BID [facility] Last Admin: 10/06/18 10:00 Dose: 375 mg Paroxetine HCl (Paxil -) 30 mg PO DAILY [facility] Last Admin: 10/06/18 09:59 Dose: 30 mg Rosuvastatin Calcium (Crestor -) 5 mg PO HS [facility] Last Admin: 10/05/18 21:30 Dose: 5 mg Senna (Senna -) 2 tab PO HS PRN PRN Reason: CONSTIPATION Tamsulosin HCl (Flomax -) 0.4 mg PO DAILY@0830 [facility] Last Admin: 10/06/18 08:48 Dose: 0.4 mg Thiamine HCl (Vitamin B1 Injection -) 250 mg IVPB TID [facility] Stop: 10/08/18 13:59 Last Admin: 10/06/18 05:55 Dose: 250 mg - Objective Vital Signs: Vital Signs Temperature 97.6 F 10/06/18 09:00 Pulse Rate 60 10/06/18 09:00 Respiratory Rate 20 10/06/18 09:00 Blood Pressure 124/61 10/06/18 09:00 O2 Sat by Pulse Oximetry (%) 96 10/05/18 21:00 Constitutional: Yes: Calm Cardiovascular: Yes: Regular Rate and Rhythm, S1, S2 Respiratory: Yes: CTA Bilaterally Gastrointestinal: Yes: Normal Bowel Sounds, Soft Edema: No Neurological: Yes: Alert, Oriented Labs: CBC, BMP 10/06/18 06:35 10/06/18 06:35 Problem List - Problems (1) Degenerative lumbar spinal stenosis Assessment/Plan: CT of LS spine degenrative disease and L3-L4 and L4-L5 stenosis seen by neurology iv thiamine ordered naproxen BID LEWIS consult noted to get MRI of C and L spine B12 and TSH noted PT -contact guard to 2 and 30 feet Code(s): M48.061 - SPINAL STENOSIS, LUMBAR REGION WITHOUT NEUROGENIC JEREMY (2) Adenoma of left adrenal gland Assessment/Plan: alosterone and cortisol ordered Code(s): D35.02 - BENIGN NEOPLASM OF LEFT ADRENAL GLAND (3) BPH (benign prostatic hyperplasia) Assessment/Plan: flomax Code(s): N40.0 - BENIGN PROSTATIC HYPERPLASIA WITHOUT LOWER URINRY TRACT SYMP (4) Anxiety Assessment/Plan: xanax Code(s): F41.9 - ANXIETY DISORDER, UNSPECIFIED
--- NOTE | 2018-10-06 20:32 | PN ---
Progress Note (short form) - Note Progress Note: NEUROLOGY FOLLOW-UP: Events and MRI images reviewed. Pt. examined. Pt is known to me from prior evaluation of LS radiculopathy. Over the last 4-5 years has had progressive neurogenic claudication with pains into right buttock and down posterior right leg into calf. Requires cane x "few years" but now claudicates after few steps. Unable to live alone or perform ADL's. + urinary frequency without incontinence. MRI of C- Spine (reviewed): Diffuse DJD eith disc dessication, disc/osteophytes and washboard appearance. 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 MRI of LS spine (reviewed): Advanced DDD with disc dessication, disc/osteophyte and are facet hypertrophy resulting in severe L4L5 and moderate L3L4 stenosis EXAM: MS/speech/CN normal Motor: Normal arm strength, reflexes and CLARA's R ankle dorsiflexion 4/5. Areflexic in legs. Toes downgoing Sensory: Decreased vibration to knees. Gait: Flexed, shuffling. Antalgic right leg. INP: Severe LS spinal stenosis No clinical signs of cervical myelopathy SUGGEST: Lumbar laminectomies at L3L4 and L4L5 for decompression of severe stenosis. Observe Re cervical spondylosis. Thank you very much, Donovan Nixon MD
[2018-10-06] MEDS ORDERED: PT OWN MED DRAWER 7, Y5N ONE (21:42)
[2018-10-06] MEDS: GABAPENTIN 300 MG CAPSULE (FP) PO SCH (22:36)
[2018-10-06] MEDS: ALPRAZolam 0.25 MG TABLET PO PRN (22:36)
[2018-10-06] MEDS: ROSUVASTATIN CA 5 MG TABLET (FP) PO SCH (23:02)
[2018-10-07] MEDS: THIAMINE HCL 200 MG/2 ML VIAL IVPB SCH ×3 (06:35→21:04)
[2018-10-07] MEDS: HEPARIN NA (PORCINE) 5,000 UNITS/ML 1ML VIAL SQ SCH ×3 (06:36→21:01)
[2018-10-07] MEDS ORDERED: PT OWN MED DRAWER 7, Y5N ONE ×2 (09:12→20:20)
[2018-10-07] MEDS: PARoxetine HCL 10 MG TABLET PO SCH (09:16)
[2018-10-07] MEDS: ASPIRIN 81 MG CHEWABLE TABLETS PO SCH (09:17)
[2018-10-07] MEDS: TAMSULOSIN HCL 0.4 MG CAP PO SCH (09:17)
[2018-10-07] MEDS: NAPROXEN 375 MG TABLET (FP) PO SCH ×2 (09:30→21:02)
--- NOTE | 2018-10-07 09:55 | PN ---
Progress Note (short form) - Note Progress Note: Patient seen and examined on the evening of Saturday October 06, 2018. MRI Cervical and Lumbar reviewed. Patient with reduced leg pain while recumbent, however, he develops Right leg radicular pain and severe neurogenic claudication soon after arising and ambulating. MRI Lumbar demonstrates multilevel degenerative changes with moderate L34 stenosis and severe L45 stenosis due to ligamentum flavum and facet hypertrophy and near complete spinal canal compromise at L45. There is a component of central disc protrusion at L34, consistent with CT findings. 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 He has profound numbness and paresthesias in his hand. Although he has undergone bilateral carpal tunnel release, he did not improve as much as he had hoped, particularly on the Left. Last year, while working with a staple gun , he accidentally drove a staple through his Left index finger and did not realize it due to the complete numbness. Only when he noticed blood dripping did he investigate and identify the staple. He has been dropping things and has severe impairment of fine motor activities. He describe inability to fasten buttons or tie his shoes. His daughter has replaced the buttons on most of his shirts with Velcro since he cannot dress or undress himself independently. He has also developed a strategy for having fatima rings inserted in his zippers since his fingers cannot locate or operate the tabs and he must rely on coarse hand movements. He has increased tone and hyperreflexia. MRI Cervical demonstrates a loss of lordosis and multilevel spondylosis which is worst at C34 where there is critical stenosis. I discussed the risks benefits and alternatives to both Cervical and Lumbar decompression and/or fusion with the patient in detail. Cervical surgery would consist of either Anterior Cervical Decompression and Fusion or Cervical laminectomies with possible lateral mass instrumentation. Lumbar decompression would likely involve L3-5 decompression with possible L34 discectomy and onlay fusion. I explained that the risks of such procedures included, but were not limited to: , coma, paralysis, bleeding, infection, CSF leak possible requiring spinal drainage or additional surgery, failure to fuse, instrumentation migration/malposition/malfunction and failure to improve as well as the potential need for further surgery. All questions were answered. Informed consent was obtained. We agreed that I should discuss these options with his children after speaking with the medical team to determine his fitness to proceed. At this point, it appears unlikely that he will improve with conservative efforts. I am concerned that any hypotension, anemia or neck movement/manipulation associated with a Lumbar decompression procedure may aggravate the critical Cervical stenosis and result in a spinal cord injury. THe patient is relatively fit for his age and a coordinated plan of care would be advised. - will speak with primary team regarding his medical fitness and clearance and then finalize surgical plan potentially for the coming week - will discuss with patient and family once final recommendations developed.
--- NOTE | 2018-10-07 10:40 | PN ---
Progress Note, Physician Chief Complaint: AWAKE ALERT EVENTS AND NOTES REVIEWED C/O CONSTIPATION SURGERY LAMINECTOMY TUESDAY - Current Medication List Current Medications: Active Medications Acetaminophen (Tylenol -) 650 mg PO Q6H PRN PRN Reason: PAIN LEVEL 4 - 6 Alprazolam (Xanax -) 0.5 mg PO HS PRN PRN Reason: AGITATION Last Admin: 10/06/18 22:36 Dose: 0.5 mg Aspirin (Asa -) 81 mg PO DAILY [facility] Last Admin: 10/07/18 09:17 Dose: 81 mg Docusate Sodium (Colace -) 100 mg PO Q12H PRN PRN Reason: CONSTIPATION Last Admin: 10/06/18 09:59 Dose: 100 mg Gabapentin (Neurontin -) 300 mg PO HS [facility] Last Admin: 10/06/18 22:36 Dose: 300 mg Heparin Sodium (Porcine) (Heparin -) 5,000 unit SQ TID [facility] Last Admin: 10/07/18 06:36 Dose: 5,000 unit Naproxen (Naprosyn -) 375 mg PO BID [facility] Last Admin: 10/07/18 09:30 Dose: 375 mg Paroxetine HCl (Paxil -) 30 mg PO DAILY [facility] Last Admin: 10/07/18 09:16 Dose: 30 mg Rosuvastatin Calcium (Crestor -) 5 mg PO HS [facility] Last Admin: 10/06/18 23:02 Dose: 5 mg Senna (Senna -) 2 tab PO HS PRN PRN Reason: CONSTIPATION Tamsulosin HCl (Flomax -) 0.4 mg PO DAILY@0830 [facility] Last Admin: 10/07/18 09:17 Dose: 0.4 mg Thiamine HCl (Vitamin B1 Injection -) 250 mg IVPB TID [facility] Stop: 10/08/18 13:59 Last Admin: 10/07/18 06:35 Dose: 250 mg - Objective Vital Signs: Vital Signs Temperature 97.7 F 10/07/18 06:00 Pulse Rate 60 10/07/18 06:00 Respiratory Rate 18 10/07/18 06:00 Blood Pressure 115/67 10/07/18 06:00 O2 Sat by Pulse Oximetry (%) 96 10/06/18 21:00 Constitutional: Yes: Mild Distress Eyes: Yes: WNL HENT: Yes: Other Neck: Yes: Decreased ROM Cardiovascular: Yes: Regular Rate and Rhythm Respiratory: Yes: WNL Gastrointestinal: Yes: Soft Genitourinary: Yes: Other Musculoskeletal: Yes: Back Pain, Muscle Weakness Edema: No Integumentary: Yes: WNL Wound/Incision: Yes: Clean/Dry Neurological: Yes: Pre-Existing Deficit, Weakness Psychiatric: Yes: WNL Labs: CBC, BMP 10/06/18 06:35 10/06/18 06:35 Problem List - Problems (1) Adenoma of left adrenal gland Code(s): D35.02 - BENIGN NEOPLASM OF LEFT ADRENAL GLAND (2) Degenerative lumbar spinal stenosis Code(s): M48.061 - SPINAL STENOSIS, LUMBAR REGION WITHOUT NEUROGENIC JEREMY (3) Weakness Code(s): R53.1 - WEAKNESS (4) Anxiety Code(s): F41.9 - ANXIETY DISORDER, UNSPECIFIED (5) BPH (benign prostatic hyperplasia) Code(s): N40.0 - BENIGN PROSTATIC HYPERPLASIA WITHOUT LOWER URINRY TRACT SYMP Assessment/Plan PATIENT TO HAVE NEUROSURGERY TUESDAY LAMINECTOMY NO CONTRAINDICATION TO SURGERY BENEFIT OUTWEIGHS THE RISK STOOL SOFTENERS AND MOM NEEDED XANAX PRN WILL NEED SNF PLACEMENT
[2018-10-07] MEDS: GABAPENTIN 300 MG CAPSULE (FP) PO SCH (21:00)
[2018-10-07] MEDS: ROSUVASTATIN CA 5 MG TABLET (FP) PO SCH (21:04)
[2018-10-07] MEDS: SENNOSIDES 8.6MG TABLET (FP) PO PRN (21:14)
[2018-10-08] MEDS: HEPARIN NA (PORCINE) 5,000 UNITS/ML 1ML VIAL SQ SCH ×3 (06:25→23:16)
[2018-10-08] MEDS: THIAMINE HCL 200 MG/2 ML VIAL IVPB SCH (06:26)
[2018-10-08] MEDS: TAMSULOSIN HCL 0.4 MG CAP PO SCH (09:00)
[2018-10-08] MEDS ORDERED: PT OWN MED DRAWER 7, Y5N ONE ×2 (11:30→20:52)
[2018-10-08] MEDS: PARoxetine HCL 10 MG TABLET PO SCH (11:41)
[2018-10-08] MEDS: ASPIRIN 81 MG CHEWABLE TABLETS PO SCH (11:42)
[2018-10-08] MEDS: NAPROXEN 375 MG TABLET (FP) PO SCH ×2 (11:42→23:17)
[2018-10-08] MEDS: POLYETHYLENE GLYCOL 3350 119 GM BTL PO SCH ×2 (11:43→23:16)
--- NOTE | 2018-10-08 12:34 | PN ---
Progress Note, Physician Chief Complaint: AWAKE ALERT D/W FAMILY CHILDREN JULIA AND ELIZA ABOUT POSSIBLE NEED FOR SURGERY TO CORRECT CERVICAL AND LUMBAR STENOSIS/HERNIATED DISCS. - Current Medication List Current Medications: Active Medications Acetaminophen (Tylenol -) 650 mg PO Q6H PRN PRN Reason: PAIN LEVEL 4 - 6 Alprazolam (Xanax -) 0.5 mg PO HS PRN PRN Reason: AGITATION Last Admin: 10/06/18 22:36 Dose: 0.5 mg Aspirin (Asa -) 81 mg PO DAILY [facility] Last Admin: 10/08/18 11:42 Dose: 81 mg Docusate Sodium (Colace -) 100 mg PO Q12H PRN PRN Reason: CONSTIPATION Last Admin: 10/06/18 09:59 Dose: 100 mg Gabapentin (Neurontin -) 300 mg PO HS [facility] Last Admin: 10/07/18 21:00 Dose: 300 mg Heparin Sodium (Porcine) (Heparin -) 5,000 unit SQ TID [facility] Last Admin: 10/08/18 06:25 Dose: 5,000 unit Naproxen (Naprosyn -) 375 mg PO BID [facility] Last Admin: 10/08/18 11:42 Dose: 375 mg Paroxetine HCl (Paxil -) 30 mg PO DAILY [facility] Last Admin: 10/08/18 11:41 Dose: 30 mg Polyethylene Glycol (Miralax (For Daily Use) -) 17 gm PO BID [facility] Last Admin: 10/08/18 11:43 Dose: 17 grams Rosuvastatin Calcium (Crestor -) 5 mg PO HS [facility] Last Admin: 10/07/18 21:04 Dose: 5 mg Senna (Senna -) 2 tab PO HS PRN PRN Reason: CONSTIPATION Last Admin: 10/07/18 21:14 Dose: 2 tab Tamsulosin HCl (Flomax -) 0.4 mg PO DAILY@0830 [facility] Last Admin: 10/08/18 09:00 Dose: 0.4 mg Thiamine HCl (Vitamin B1 Injection -) 250 mg IVPB TID [facility] Stop: 10/08/18 13:59 Last Admin: 10/08/18 06:26 Dose: 250 mg - Objective Vital Signs: Vital Signs Temperature 98.0 F 10/08/18 06:00 Pulse Rate 87 10/08/18 06:00 Respiratory Rate 18 10/08/18 06:00 Blood Pressure 119/82 10/08/18 06:00 O2 Sat by Pulse Oximetry (%) 99 10/07/18 21:00 Constitutional: Yes: Mild Distress Eyes: Yes: WNL HENT: Yes: WNL Neck: Yes: WNL Cardiovascular: Yes: Regular Rate and Rhythm Respiratory: Yes: WNL Gastrointestinal: Yes: Soft Genitourinary: Yes: WNL Musculoskeletal: Yes: Back Pain, Muscle Weakness Extremities: Yes: Other Edema: No Peripheral Pulses WNL: Yes Integumentary: Yes: WNL Wound/Incision: Yes: Clean/Dry Neurological: Yes: Numbness, Paresthesia, Weakness ...Motor Strength: LUE, LLE, RUE, RLE Psychiatric: Yes: WNL Labs: CBC, BMP 10/06/18 06:35 10/06/18 06:35 Problem List - Problems (1) Adenoma of left adrenal gland Code(s): D35.02 - BENIGN NEOPLASM OF LEFT ADRENAL GLAND (2) Degenerative lumbar spinal stenosis Code(s): M48.061 - SPINAL STENOSIS, LUMBAR REGION WITHOUT NEUROGENIC JEREMY (3) Weakness Code(s): R53.1 - WEAKNESS (4) Anxiety Code(s): F41.9 - ANXIETY DISORDER, UNSPECIFIED (5) BPH (benign prostatic hyperplasia) Code(s): N40.0 - BENIGN PROSTATIC HYPERPLASIA WITHOUT LOWER URINRY TRACT SYMP (6) Cervical spinal stenosis Code(s): M48.02 - SPINAL STENOSIS, CERVICAL REGION Assessment/Plan NEUROSURGERY STILL AN OPTION FOR CERVICAL AND LUMBAR LAMINECTOMIES WITH DECOMPRESSIONS. PATIENT WOULD BE MEDICALLY CLEARED FROM MEDICINE FOR THIS PROCEDURE. FAMILY WANTS THEIR DAD TO OPT FOR PHYSICAL THERAPY, [facility] WITH EPIDURAL INJECTIONS. HOWEVER THEIR DAD HAD DECLINED EPIDURAL INJECTIONS AND NERVE BLOCKS IN THE PAST. AWAIT FAMILY MEETING TOMORROW PAIN CONTROL DVT PROPHYLAXIS MEDICAL CLEARANCE IN PROGRESS
[2018-10-08] MEDS: GABAPENTIN 300 MG CAPSULE (FP) PO SCH (23:15)
[2018-10-08] MEDS: ROSUVASTATIN CA 5 MG TABLET (FP) PO SCH (23:15)
--- NOTE | 2018-10-08 23:31 | PN ---
Progress Note (short form) - Note Progress Note: Discussed the risks, benefits and alternatives to Cervical 3-7 laminectomies and lateral mass instrumentation as well as L3-5 laminectomies with onlay fusion with patient in great detail. I explained that the risks included, but were not limited to: , coma, paralysis, bleeding, infection, CSF leak possibly requiring spinal drainage or additional fusion, failure to fuse, instrumentation migration/malfunction/malposition and the need for additional surgery. Given patient's age and medical comorbidities, surgery will not be a trivial undertaking, however, should not be unduly cumbersome or risky for him. The natural history of his condition (Cervical spondylotic myelopathy with profound myelopathy and sub 5 mm canal as well as severe Lumbar stenosis) is extremely poor. There is no significant chance that he will achieve anything more than partial and brief relief with Physical Therapy and Epidural injections. Case discussed with Dr. Perkins and family meeting planned for Tuesday to review all treatment options.
[2018-10-09] MEDS: ALPRAZolam 0.25 MG TABLET PO PRN ×2 (02:52→22:55)
[2018-10-09] MEDS: HEPARIN NA (PORCINE) 5,000 UNITS/ML 1ML VIAL SQ SCH ×3 (06:38→22:51)
[2018-10-09] MEDS: TAMSULOSIN HCL 0.4 MG CAP PO SCH (09:34)
[2018-10-09] MEDS ORDERED: PT OWN MED DRAWER 7, Y5N ONE ×2 (09:53→11:02)
[2018-10-09] MEDS: PARoxetine HCL 10 MG TABLET PO SCH (09:55)
[2018-10-09] MEDS: NAPROXEN 375 MG TABLET (FP) PO SCH ×2 (09:56→22:55)
[2018-10-09] MEDS: POLYETHYLENE GLYCOL 3350 119 GM BTL PO SCH ×2 (10:00→22:51)
--- NOTE | 2018-10-09 11:56 | CON.CARD ---
Consult Consult Specialty:: Cardiology Referred by:: Antony Marks Reason for Consultation:: Preop - History of Present Illness Chief Complaint: Leg pain History of Present Illness: 88 year old male with a pmhx of dm, htn, hld, right knee OA, chronic back pain, anxiety, and CAD (NST 12/2017 with mild lateral and inferolateral ischemia) presents to the ED with severe back pain radiating down his righ leg and decreased mobility as a result. Seen by neurosurgery and being considered for surgery for lumbar and cervical stenosis. Multiple falls due to this issue. Denies any chest pain, sob, or palpitations. No pnd, orthopnea, or edema. Denies any cardiac problems but noted to have a stress test 12/2017 with mild lateral and inferolateral ischemia. Can walk to and from his car and up 21 steps but that is limit of his exercise level due to his spinal issues. Echo 2016 with normal LVEF, mild to mod MR, mild pulm htn. EKG: sinus rhythm, pac's, no acute st changes. 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 History of Recent Travel: No Home Medications - Allergies Allergies/Adverse Reactions: Allergies Allergy/AdvReac Type Severity Reaction Status Date / Time No Known Allergies Allergy Verified 10/03/18 14:59 - Home Medications Home Medications: Ambulatory Orders Aspirin [ASA -] 81 mg PO DAILY 03/13/16 Paroxetine HCl 37.5 mg PO DAILY 03/13/16 Lisinopril [Zestril] 2.5 mg PO DAILY 12/19/16 Gabapentin [Neurontin -] 300 mg PO HS 09/24/18 Levocetirizine Dihydrochloride [Xyzal] 5 mg PO HS 09/24/18 Mirtazapine 7.5 mg PO HS 09/24/18 Alprazolam [Xanax] 0.5 mg PO HS [facility] 1 tab 10/04/18 Rosuvastatin Calcium [Crestor] 1 tab PO HS 10/04/18 Tamsulosin HCl [Flomax] 0.4 mg PO DAILY 10/04/18 Vital Signs: Vital Signs Temperature 97.5 F L 10/09/18 10:21 Pulse Rate 57 L 10/09/18 10:21 Respiratory Rate 20 10/09/18 10:21 Blood Pressure 100/46 L 10/09/18 10:21 O2 Sat by Pulse Oximetry (%) 99 10/08/18 21:00 Constitutional: Yes: No Distress Neck: Yes: Supple Respiratory: Yes: CTA Bilaterally Gastrointestinal: Yes: Soft Cardiovascular: Yes: Regular Rate and Rhythm JVD: No Carotid Bruit: No PMI: Non-Displaced Heart Sounds: Yes: S1, S2 Murmur: No: Systolic Murmur Edema: No - Other Data Labs, Other Data: CBC, BMP 10/06/18 06:35 10/06/18 06:35 Imaging - Results Chest X-ray: Report Reviewed EKG: Image Reviewed Problem List - Problems (1) Cervical spinal stenosis Code(s): M48.02 - SPINAL STENOSIS, CERVICAL REGION Assessment/Plan 88 year old male with a pmhx of dm, htn, hld, right knee OA, chronic back pain, anxiety, and CAD (NST 12/2017 with mild lateral and inferolateral ischemia) presents to the ED with severe back pain radiating down his righ leg and decreased mobility as a result. Seen by neurosurgery and being considered for surgery for lumbar and cervical stenosis. Multiple falls due to this issue. Denies any chest pain, sob, or palpitations. No pnd, orthopnea, or edema. Denies any cardiac problems but noted to have a stress test 12/2017 with mild lateral and inferolateral ischemia and normal lvef. Can walk to and from his car and up 21 steps but that is limit of his exercise level due to his spinal issues. Echo 2016 with normal LVEF, mild to mod MR, mild pulm htn. EKG: sinus rhythm, pac's, no acute st changes. Carotid Duplex: atherosclerosis but no hemodynamically significant stenosis. 1) Preop: -Patient for possible neurosurgical intervention for his cervical/lumbar stenosis. NST 12/2017 with mild lateral and inferolateral ischemia and normal LVEF but EKG with no acute ischemic changes and patient with no cardiac complaints. No signs of chf on exam. No significant murmurs on exam. No cardiac contraindications noted for surgery. Would check with Dr. Marks's office to see if has an echocardiogram in the last year or so just to see results. No further cardiac work up indicated at this time. On aspirin/statin. Stop aspirin as needed per surgical team. Not on beta erasmo and if blood pressure allows in future will consider but would not start acutely prior to surgery. Please call if needed
--- NOTE | 2018-10-09 13:16 | ECHO ---
Name: ELIZA ROGERS Exam:Adult Echocardiogram Study Date: 10/09/2018 09:25 AM Age: 88 yrs Reason For Study: Pre-op Height: 69 in Weight: 158 lb BSA: 1.9 m2 MMode/2D Measurements & Calculations IVSd: 1.1 cm Ao root diam: 3.1 cm LVIDd: 3.6 cm LA dimension: 3.2 cm LVIDs: 2.6 cm LVPWd: 0.93 cm EDV(Teich): 55.3 ml LVOT diam: 2.0 cm ESV(Teich): 23.8 ml LAV (MOD-bp): 41.4 ml Doppler Measurements & Calculations MV E max thiago: 83.9 cm/sec Ao V2 max: 157.5 cm/sec MV A max thiago: 103.8 cm/sec Ao max P.9 mmHg MV E/A: 0.81 MV dec time: 0.21 sec HUMAIRA(V,D): 2.3 cm2 LV V1 max P.1 mmHg TR max thiago: 264.7 cm/sec LV V1 max: 112.5 cm/sec TR max P.0 mmHg PA V2 max: 130.3 cm/sec Med Peak E' Thiago: 7.3 cm/sec PA max P.8 mmHg Med E/e': 11.5 Lat Peak E' Thiago: 10.1 cm/sec Lat E/e': 8.3 Procedure A complete two-dimensional transthoracic echocardiogram was performed (2D, M-mode, Doppler and color flow Doppler). Left Ventricle The left ventricle is normal in size. Left ventricular systolic function is normal. Ejection Fraction = 60- 65%. No regional wall motion abnormalities noted. Right Ventricle The right ventricle is normal size. The right ventricular systolic function is normal. Atria The left atrial size is normal. Right atrial size is normal. Mitral Valve The mitral valve is normal in structure and function. There is no mitral regurgitation noted. Tricuspid Valve The tricuspid valve is normal in structure and function. There is mild tricuspid regurgitation. Pulmo nary artery systolic pressure is at least 31 mmHg assuming RA pressure is 3 mmHg. Aortic Valve The aortic valve is normal in structure and function. No aortic regurgitation is present. Pulmonic Valve The pulmonic valve is not well visualized. Great Vessels The aortic root is normal size. Pericardium/Pleura There is no pericardial effusion. Interpretation Summary The left ventricle is normal in size. Left ventricular systolic function is normal. No regional wall motion abnormalities noted. Ejection Fraction = 60-65%. The right ventricular systolic function is normal. The left atrial size is normal. Right atrial size is normal. There is mild tricuspid regurgitation. Pulmonary artery systolic pressure is at least 31 mmHg assuming RA pressure is 3 mmHg There is no pericardial effusion. When compared to study dated 09/13/16, no significant changes Juanito Ball MD 10/09/2018 01:16 PM
--- NOTE | 2018-10-09 14:08 | PN ---
Progress Note (short form) - Note Progress Note: Patient remains stable. Case discussed with Dr. Nixon and I agree with his focus on Lumbar pathology as being his primary concern at this time. I discussed surgery limited to Lumbar decompression. After discussion with his children, he wishes to pursue non-operative treatment.
--- NOTE | 2018-10-09 15:17 | PN ---
Progress Note, Physician Chief Complaint: patient seen and examined to get EMG awaitng SNF placement possible [facility] - Current Medication List Current Medications: Active Medications Acetaminophen (Tylenol -) 650 mg PO Q6H PRN PRN Reason: PAIN LEVEL 4 - 6 Alprazolam (Xanax -) 0.5 mg PO HS PRN PRN Reason: AGITATION Last Admin: 10/09/18 02:52 Dose: 0.5 mg Aspirin (Asa -) 81 mg PO DAILY [facility] Docusate Sodium (Colace -) 100 mg PO Q12H PRN PRN Reason: CONSTIPATION Last Admin: 10/06/18 09:59 Dose: 100 mg Gabapentin (Neurontin -) 300 mg PO HS [facility] Last Admin: 10/08/18 23:15 Dose: 300 mg Heparin Sodium (Porcine) (Heparin -) 5,000 unit SQ TID [facility] Last Admin: 10/09/18 14:31 Dose: 5,000 unit Naproxen (Naprosyn -) 375 mg PO BID [facility] Last Admin: 10/09/18 09:56 Dose: 375 mg Paroxetine HCl (Paxil -) 30 mg PO DAILY [facility] Last Admin: 10/09/18 09:55 Dose: 30 mg Polyethylene Glycol (Miralax (For Daily Use) -) 17 gm PO BID [facility] Last Admin: 10/09/18 10:00 Dose: 17 grams Rosuvastatin Calcium (Crestor -) 5 mg PO HS [facility] Last Admin: 10/08/18 23:15 Dose: 5 mg Senna (Senna -) 2 tab PO HS PRN PRN Reason: CONSTIPATION Last Admin: 10/07/18 21:14 Dose: 2 tab Tamsulosin HCl (Flomax -) 0.4 mg PO DAILY@0830 [facility] Last Admin: 10/09/18 09:34 Dose: 0.4 mg - Objective Vital Signs: Vital Signs Temperature 97.5 F L 10/09/18 10:21 Pulse Rate 57 L 10/09/18 10:21 Respiratory Rate 20 10/09/18 10:21 Blood Pressure 100/46 L 10/09/18 10:21 O2 Sat by Pulse Oximetry (%) 99 10/08/18 21:00 Constitutional: Yes: Calm Cardiovascular: Yes: Regular Rate and Rhythm, S1, S2 Respiratory: Yes: CTA Bilaterally Gastrointestinal: Yes: Normal Bowel Sounds, Soft Edema: No Neurological: Yes: Alert, Oriented Labs: CBC, BMP 10/06/18 06:35 10/06/18 06:35 Problem List - Problems (1) Degenerative lumbar spinal stenosis Assessment/Plan: CT of LS spine degenrative disease and L3-L4 and L4-L5 stenosis seen by neurology and [facility] - family doesnot want surgery lumbar decomporession plan for snf to [place] iv thiamine ordered- completed naproxen BID LEWIS consult noted to get MRI of C and L spine B12 and TSH noted Code(s): M48.061 - SPINAL STENOSIS, LUMBAR REGION WITHOUT NEUROGENIC JEREMY (2) Adenoma of left adrenal gland Assessment/Plan: alosterone and cortisol ordered Code(s): D35.02 - BENIGN NEOPLASM OF LEFT ADRENAL GLAND (3) BPH (benign prostatic hyperplasia) Assessment/Plan: flomax Code(s): N40.0 - BENIGN PROSTATIC HYPERPLASIA WITHOUT LOWER URINRY TRACT SYMP (4) Anxiety Assessment/Plan: xanax Code(s): F41.9 - ANXIETY DISORDER, UNSPECIFIED
--- NOTE | 2018-10-09 17:17 | CONS ---
DATE OF CONSULTATION: 10/09/2018 HISTORY OF PRESENT ILLNESS: The patient is an 88-year-old man with past medical history of prior lumbar surgery back in 2003 who was admitted with chief complaint of back pain radiating down his right lower extremity with difficulty walking. The patient had lumbar surgery again in 2003 but had been doing very well until the last 3 months when he developed radicular pain radiating down from his right buttocks down his right lower extremity. He has been ambulating with a cane, but he did fall at least once after his right lower extremity gave out. He underwent CT of the head, which was negative for any bleed, CT of the cervical spine, which showed multilevel degenerative disk disease most marked at C5-6 and C6-7. On October 03, he was unable to get out of bed and eventually brought to [facility] undergoing a CT of the lumbar spine on October 04, which demonstrated advanced degenerative disk and facet changes with prominent L4-5 and L3-4 canal stenosis. The patient underwent neurologic evaluation as well as further imaging including an MRI of the lumbar spine on October 06, which demonstrated again severe canal stenosis at L4-5 as well as moderate canal stenosis at L3-4. His cervical MRI was also done on October 06, which demonstrated C3-4 central canal stenosis with flattened thecal sac and spinal cord but no change in signal intensity of the spinal cord. The patient is followed by Dr. Diggs and is to undergo a family meeting in regards to possible surgery. Dr. Nixon did request possible electrodiagnostic studies, and the nurse will check to see if these studies are still requested. Other tests included ultrasound of the carotids, which showed [id number] sized plaque in the right common carotid bifurcation bulb without any hemodynamically significant stenosis. Moderate plaque also noted in the left common carotid bifurcation bulb now any hemodynamically significant stenosis. Blood work shows some mild anemia. On October 06, hemoglobin 11.6 with a normal WBCs 4.6 and platelet count of 290. Chemistry showed slight elevation of chloride 109. He had a normal BUN 17, creatinine normal 0.7, albumin low at 3.1. His B12 level was normal at 538, TSH normal at 1.11. PAST MEDICAL HISTORY: Also significant for diabetes, hypertension, hyperlipidemia, right knee osteoarthritis, chronic back pain. PAST SURGICAL HISTORY: Status post lumbar surgery 2013. He is status post appendectomy, left total hip replacement. SOCIAL HISTORY: He lives alone in an apartment. 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 Premorbidly independent. Ambulatory without assistive device but more recently had been using a straight cane. Current function not available but requires assistance. Not a tobacco user. REVIEW OF SYSTEMS: No headache, no lightheadedness, dizziness. No blurry vision, double vision. No nausea, vomiting, difficulty swallowing, difficulty chewing. No chest pain or shortness of breath. No abdominal pain. He did have some constipation relieved with MiraLAX. No urinary retention, dysuria, polyuria, or urinary incontinence. He gets some numbness down the right lower extremity but no reported weakness in the upper or lower extremities. Some loss of balance with ambulation. No skin rash. No fever or chills. No weight loss, weight gain. PHYSICAL EXAMINATION: General: The patient is an elderly man lying in bed. He is in no acute distress. HEENT: He is normocephalic and atraumatic. His extraocular muscles appear full. He has no obvious facial weakness. Neck: Supple. Extremities: Without any pitting edema or calf tenderness. Neuromuscular: He is awake, alert, oriented x3. Cranial nerves 2-12 are grossly intact. Good strength and range throughout his upper and lower limbs. He has diminished sensation mainly in right L5 and L4 dermatomes, possibly some S1 but normal throughout his left lower extremity and upper extremities to pinprick. Symmetric reflexes. Toes equivocal. Unable to stand or ambulate him currently due to pain. Skin: Without any rash or breakdown. OVERALL IMPRESSION: 1. Deficits in mobility, activities of daily living, multifactorial. 2. 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 3. Cervical myelopathy. 4. Gait disorder. 5. Borderline mild anemia. 6. Hypoalbuminemia. 7. Diabetes. 8. Hypertension. 9. History of hip replacement. 10. History of lumbar surgery. 11. Elevated risk for deep vein thrombosis. PLAN/SUGGESTION: 1. Discussed with family as well as nursing and patient. 2. Nursing to check with Dr. Diggs, Dr. Nixon regarding whether EMG is still requested and will proceed with EMG later today if needed. 3. Family conference regarding surgery to proceed today. 4. Physical therapy once appropriate. 5. Out of bed to chair with assistance. 6. DVT prophylaxis. Consider SCDs if surgery considered. 7. Will need further rehabilitation. 8. Pain management. 9. Bowel regimen. Thank you for this referral. NANCI RUDOLPH M.D. VANESSA/[id number]
--- NOTE | 2018-10-09 19:51 | PN ---
Progress Note (short form) - Note Progress Note: NEUROLOGY PROGRESS: Events reviewed and discussed with Gino Khoury this AM and patient this PM. Children apparently opted for a course of Rehab "PRIOR" to possible LS laminectomy. Awaiting Kaplan evaluation. EMG/NCS performed this afternoon. Discussed with Dr. Alexis NCS are essentially normal with absent right H reflex. Needle EMG shows multiple denervated muscles supporting Chronic R L5 and B/L S1 radiculopathies. Lumbosacral polyradiculopathy is the electrophysiological correlate of LS spinal stenosis. EXAM: - SLR Mild right ankle dorsiflexion weakness. Absent AJ's KJ's Reduced vibration to the midcalves B/L IMP: Exam and EMG support active Lumbosacral polyradiculopathy c/w symptomatic LS Spinal stenosis. SUGGEST: Doubt patient will progress in Rehab (will move from cane to walker for stability) without LS decompression. Neuro/ NS follow-up after rehab. Thank you very much, Donovan Nixon MD I
[2018-10-09] MEDS: ROSUVASTATIN CA 5 MG TABLET (FP) PO SCH (22:55)
[2018-10-09] MEDS: GABAPENTIN 300 MG CAPSULE (FP) PO SCH (22:55)
[2018-10-10] MEDS: HEPARIN NA (PORCINE) 5,000 UNITS/ML 1ML VIAL SQ SCH ×3 (06:28→21:36)
--- NOTE | 2018-10-10 08:46 | PN ---
Progress Note, Physician - Current Medication List Current Medications: Active Medications Acetaminophen (Tylenol -) 650 mg PO Q6H PRN PRN Reason: PAIN LEVEL 4 - 6 Alprazolam (Xanax -) 0.5 mg PO HS PRN PRN Reason: AGITATION Last Admin: 10/09/18 22:55 Dose: 0.5 mg Aspirin (Asa -) 81 mg PO DAILY [facility] Docusate Sodium (Colace -) 100 mg PO Q12H PRN PRN Reason: CONSTIPATION Last Admin: 10/06/18 09:59 Dose: 100 mg Gabapentin (Neurontin -) 300 mg PO HS [facility] Last Admin: 10/09/18 22:55 Dose: 300 mg Heparin Sodium (Porcine) (Heparin -) 5,000 unit SQ TID [facility] Last Admin: 10/10/18 06:28 Dose: 5,000 unit Naproxen (Naprosyn -) 375 mg PO BID [facility] Last Admin: 10/09/18 22:55 Dose: 375 mg Paroxetine HCl (Paxil -) 30 mg PO DAILY [facility] Last Admin: 10/09/18 09:55 Dose: 30 mg Polyethylene Glycol (Miralax (For Daily Use) -) 17 gm PO BID [facility] Last Admin: 10/09/18 22:51 Dose: 17 grams Rosuvastatin Calcium (Crestor -) 5 mg PO HS [facility] Last Admin: 10/09/18 22:55 Dose: 5 mg Senna (Senna -) 2 tab PO HS PRN PRN Reason: CONSTIPATION Last Admin: 10/07/18 21:14 Dose: 2 tab Tamsulosin HCl (Flomax -) 0.4 mg PO DAILY@0830 [facility] Last Admin: 10/09/18 09:34 Dose: 0.4 mg - Objective Vital Signs: Vital Signs Temperature 97.6 F 10/10/18 06:00 Pulse Rate 52 L 10/10/18 06:00 Respiratory Rate 20 10/10/18 06:00 Blood Pressure 124/66 10/10/18 06:00 O2 Sat by Pulse Oximetry (%) 98 10/09/18 21:00 Cardiovascular: Yes: S1, S2 Respiratory: Yes: Regular, CTA Bilaterally Gastrointestinal: Yes: Normal Bowel Sounds, Soft Musculoskeletal: Yes: Back Pain, Muscle Weakness Neurological: Yes: Unsteady Gait Labs: CBC, BMP 10/06/18 06:35 10/06/18 06:35 Assessment/Plan - Problems (1) Degenerative lumbar spinal stenosis Assessment/Plan: CT of LS spine degenrative disease and L3-L4 and L4-L5 stenosis seen by neurology and [facility] - family does not want surgery lumbar decomporession plan for snf to [facility] thiamine ordered- completed naproxen BID [facility] consult noted to get MRI of C and L spine B12 and TSH noted Code(s): M48.061 - SPINAL STENOSIS, LUMBAR REGION WITHOUT NEUROGENIC JEREMY (2) Adenoma of left adrenal gland Assessment/Plan: alosterone and cortisol ordered Code(s): D35.02 - BENIGN NEOPLASM OF LEFT ADRENAL GLAND (3) BPH (benign prostatic hyperplasia) Assessment/Plan: flomax Code(s): N40.0 - BENIGN PROSTATIC HYPERPLASIA WITHOUT LOWER URINRY TRACT SYMP (4) Anxiety Assessment/Plan: xanax Code(s): F41.9 - ANXIETY DISORDER, UNSPECIFIED
[2018-10-10] MEDS: TAMSULOSIN HCL 0.4 MG CAP PO SCH (08:51)
[2018-10-10] MEDS: PARoxetine HCL 10 MG TABLET PO SCH (10:18)
[2018-10-10] MEDS: ASPIRIN 81 MG CHEWABLE TABLETS PO SCH (10:19)
[2018-10-10] MEDS: NAPROXEN 375 MG TABLET (FP) PO SCH ×2 (10:20→21:36)
[2018-10-10] MEDS: POLYETHYLENE GLYCOL 3350 119 GM BTL PO SCH ×2 (10:24→21:35)
[2018-10-10] MEDS: ROSUVASTATIN CA 5 MG TABLET (FP) PO SCH (21:36)
[2018-10-10] MEDS: GABAPENTIN 300 MG CAPSULE (FP) PO SCH (21:36)
[2018-10-10] MEDS: SENNOSIDES 8.6MG TABLET (FP) PO PRN (21:36)
[2018-10-10] MEDS: ALPRAZolam 0.25 MG TABLET PO PRN (21:36)
[2018-10-11] MEDS: HEPARIN NA (PORCINE) 5,000 UNITS/ML 1ML VIAL SQ SCH (05:52)
--- NOTE | 2018-10-11 09:19 | DS ---
Physical Examination Vital Signs: Vital Signs Temperature 98.1 F 10/11/18 06:00 Pulse Rate 54 L 10/11/18 06:00 Respiratory Rate 20 10/11/18 06:00 Blood Pressure 119/65 10/11/18 06:00 O2 Sat by Pulse Oximetry (%) 98 10/10/18 21:00 Cardiovascular: Yes: Regular Rate and Rhythm Respiratory: Yes: Regular, CTA Bilaterally Gastrointestinal: Yes: Normal Bowel Sounds, Soft Neurological: Yes: Alert, Oriented, Unsteady Gait, Weakness Labs: CBC, BMP 10/06/18 06:35 10/06/18 06:35 Discharge Summary Reason For Visit: RECURRENT FAILURE,WEAKNESS Current Active Problems Adenoma of left adrenal gland (Acute) Cervical spinal stenosis (Acute) Cholelithiasis NOS (Acute) Degenerative lumbar spinal stenosis (Acute) Frequent falls (Acute) Prophylactic measure (Acute) Weakness (Acute) Hospital Course: - Problems (1) Degenerative lumbar spinal stenosis Assessment/Plan: CT of LS spine degenrative disease and L3-L4 and L4-L5 stenosis seen by neurology and [facility] - family does not want surgery lumbar decomporession plan [place] [facility] [place] thiamine ordered- completed naproxen BID [facility] consult noted to get MRI of C and L spine B12 and TSH noted Code(s): M48.061 - SPINAL STENOSIS, LUMBAR REGION WITHOUT NEUROGENIC JEREMY (2) Adenoma of left adrenal gland Assessment/Plan: alosterone and cortisol ordered Code(s): D35.02 - BENIGN NEOPLASM OF LEFT ADRENAL GLAND (3) BPH (benign prostatic hyperplasia) Assessment/Plan: flomax Code(s): N40.0 - BENIGN PROSTATIC HYPERPLASIA WITHOUT LOWER URINRY TRACT SYMP (4) Anxiety Assessment/Plan: xanax Code(s): F41.9 - ANXIETY DISORDER, UNSPECIFIED Condition: Stable - Instructions Referrals: Antony Marks MD [Primary Care Provider] - Disposition: TRANSFER ACUTE CARE/OTHER HOSP - Home Medications Comprehensive Discharge Medication List: Ambulatory Orders Aspirin [ASA -] 81 mg PO DAILY 03/13/16 Paroxetine HCl 37.5 mg PO DAILY 03/13/16 Gabapentin [Neurontin -] 300 mg PO HS 09/24/18 Alprazolam [Xanax] 0.5 mg PO HS MDD 1 tab 10/04/18 Rosuvastatin Calcium [Crestor] 1 tab PO HS 10/04/18 Tamsulosin HCl [Flomax] 0.4 mg PO DAILY 10/04/18 Acetaminophen [Tylenol .Regular Strength -] 650 mg PO Q6H PRN tablet 10/11/18 Docusate Sodium [Colace -] 100 mg PO Q12H PRN capsule 10/11/18 Heparin - 5,000 unit SQ TID vial 10/11/18 Polyethylene Glycol 3350 [Miralax 119 gm Btl -] 17 gm PO BID bottle 10/11/18 Sennosides [Senna -] 2 tab PO HS PRN tablet 10/11/18
[2018-10-11] MEDS: PARoxetine HCL 10 MG TABLET PO SCH (10:32)
[2018-10-11] MEDS: NAPROXEN 375 MG TABLET (FP) PO SCH (10:32)
[2018-10-11] MEDS: POLYETHYLENE GLYCOL 3350 119 GM BTL PO SCH (10:32)
[2018-10-11] MEDS: ASPIRIN 81 MG CHEWABLE TABLETS PO SCH (10:32)
[2018-10-11] MEDS: TAMSULOSIN HCL 0.4 MG CAP PO SCH (10:32)
[2018-10-11 10:35] VITALS: BP 130/75; PULSE 62; TEMP 98
[2018-10-13 21:03] VITALS: BMI 23.3
== END 2018-10-11 12:18 | disposition short-term general hospital (02) | DRG 552 ==
LOC: JER 16:18 → JERBED 18:37 → J5S 21:45
PROVIDERS: ADMIT Family Medicine; ATTEND Family Medicine
DX: M51.16 Intervertebral disc disorders with radiculopathy, lumbar region (principal); M48.062 Spinal stenosis, lumbar region with neurogenic claudication; M43.02 Spondylolysis, cervical region; M40.202 Unspecified kyphosis, cervical region; D35.02 Benign neoplasm of left adrenal gland; D18.09 Hemangioma of other sites; E11.9 Type 2 diabetes mellitus without complications; E78.5 Hyperlipidemia, unspecified; F41.9 Anxiety disorder, unspecified; I10 Essential (primary) hypertension; Z87.891 Personal history of nicotine dependence; R29.6 Repeated falls; Z96.642 Presence of left artificial hip joint; G47.00 Insomnia, unspecified; K59.00 Constipation, unspecified; M17.11 Unilateral primary osteoarthritis, right knee; I25.10 Atherosclerotic heart disease of native coronary artery without angina pectoris; M46.09 Spinal enthesopathy, multiple sites in spine
CPT/HCPCS: 36415; 71045-TC-FY; 72131-TC; 72141-TC; 72148-TC; 80053; 80307; 81003; 82088; 82533; 82550; 82607; 82962; 83036; 83735; 84100; 84443; 84484; 85025; 86593; 87086; 93005; 93010; 93306-TC; 93880-TC; 95860-TC; 97116-GP; 97162-GP; 99282-25; 99283-25; J1644